=== PATIENT | male | born 1950 | race Caucasian/White ===

== ENCOUNTER 2017-03-15 13:27 | Emergency (ER) | payer OTHER ==
[~2017-03-15] VITALS: Ht 175.3 cm; Wt 72.6 kg
[2017-03-15] MEDS ORDERED: CHOLESTEROL PILL (13:43)
[2017-03-15] MEDS ORDERED: BP MED (13:43)
[2017-03-15] MEDS ORDERED: ASPIR 8181 MG PO (13:44)
== END 2017-03-15 13:50 | disposition home or self-care (01) ==
LOC: ED 13:27
DX: Z00.8 Encounter for other general examination (principal)

== ENCOUNTER 2017-07-29 17:49 | Inpatient (IN) | payer OTHER ==
[~2017-07-29] VITALS: Ht 175.3 cm; Wt 77.0 kg
[~2017-07-29 17:49] MED LIST: ASPIR 8181 MG PO; BP MED; CHOLESTEROL PILL
--- NOTE | 2017-07-30 00:45 | NUR ---
HANDOFF REPORT RECEIVED FROM ED RN MARIELLE VIA TELEPHONE. PT TO ARRIVE TO MED SURG WITH FLOAT NURSE ANGLE.
--- NOTE | 2017-07-30 01:00 | NUR ---
PT ARRIVES TO MED SURG FLOOR WITH FLOAT NURSE ANGLE VIA STRETCHER. PT ABLE TO AMBULATE FROM STRETCHER INDEPENDENTLY TO HOSPITAL BED. PT STATES PAIN IS 2/10 AT THIS TIME, REFUSES PRN PAIN MEDICATION. PT DENIES NAUSEA. ABDOMEN SOFT, BOWEL TONES ACTIVE X 4, PT GUARDED WITH PALPATION, DENIES TENDERNESS. PTS LUNGS CLEAR THROUGHOUT, HR IRREGULAR, ON TELE 5. IVF INFUSING WNL, LINE FLUSHES WELL, GOOD BLOOD RETURN. CALL LIGHT GIVEN TO PT, MOUTH SWABS AT BEDSIDE. PT HAD TEMPERATURE OF 99.0, DEMONSTRATED USE OF INCENTIVE SPIROMETER EFFECTIVELY X 3. WILL CONTINUE TO MONITOR.
--- NOTE | 2017-07-30 02:36 | NUR ---
IN PT ROOM, IV PUMP BEEPING FOR DISTAL OCCLUSION. PT SLEEPING ON LEFT SIDE, APPEARS COMFORTABLE, BREATHING NON-LABORED, PT QUIETLY SNORING. CALL LIGHT IN REACH.
--- NOTE | 2017-07-30 02:59 | NUR ---
IN PT ROOM TO FIX LEAD ON TELE, PT AWAKENS TO VOICE, STATES PAIN IS 4/10 AT THIS TIME "COMING BACK". ADMINISTERED 2MG MORPHINE IV PRN. INSTRUCTED PT TO USE CALL LIGHT FOR ANY NEEDS, CALL LIGHT IN REACH. CURTAIN CLOSED PER PT REQUEST. IVF INFUSING.
--- NOTE | 2017-07-30 04:13 | NUR ---
CHECKED ON PT, PT SLEEPING AT THIS TIME, IVF INFUSING, PT SNORING QUIETLY, LIGHTS OFF IN ROOM, PT APPEARS COMFORTABLE, BREATHING NON-LABORED.
--- NOTE | 2017-07-30 05:09 | NUR ---
PHONE CALL RECEIVED FROM PT'S , UPDATED ON PT STATUS, DR. LUIS TO EVALUATE PT TODAY.
--- NOTE | 2017-07-30 05:12 | NUR ---
PT RECEIVED IV MORPHINE 2MG X 1 FOR 4/10 REPORTED PAIN IN MID ABD. PT HAS DENIED NAUSEA THROUGHOUT SHIFT, ABD SOFT, NON-TENDER WITH PALPATION. PT CONTINUES TO RECEIVE IVF. HR IRREGULAR THROUGHOUT SHIFT, ON TELE 5, RATE CONTROLLED. PT SLEPT MOST OF SHIFT AFTER ARRIVING TO MED SURG, PLEASANT, ALERT AND ORIENTED X 3.
--- NOTE | 2017-07-30 05:32 | NUR ---
PT ASSESSMENT COMPLETE. PT ABDOMEN SOFT, NON-TENDER WITH PALPATION, PT STATES PAIN IS 1.5-2/10 AT THIS TIME. PT DENIES NAUSEA, BOWEL TONES ACTIVE X 4. PT USING INCENTIVE SPIROMETER AT THIS TIME INDEPENDENTLY. IVF INFUSING WNL. CALL LIGHT IS IN REACH. GAVE PT MOUTH SWAB REQUESTED, AND EMPTIED URINAL, 150 ML.
--- NOTE | 2017-07-30 05:53 | EKG ---
[facility] [address] [facility] [place] [address] Signed Atrial fibrillation Abnormal QRS-T angle, consider primary T wave abnormality Abnormal ECG No previous ECGs available Confirmed by RACHANA BALLESTEROS MD ([id number]) on 07/30/2017 5:52:45 AM Electronically Signed By: RACHANA BALLESTEROS MD 07/30/17 0553 PATIENT NAME: RODRICK JAVIER Electrocardiogram DATE OF : 48 PHYSICIAN: RACHANA BALLESTEROS MD REPORT #: [id number] REPORT IS CONFIDENTIAL AND NOT TO BE RELEASED WITHOUT AUTHORIZATION
--- NOTE | 2017-07-30 08:22 | NUR ---
PT RESTING IN BED WITH EYES CLOSED UPON ENTERING ROOM. AWOKE EASILY TO VOICE. PT DENIES PAIN, NAUSEA, OR OTHER CONCERNS AT THIS TIME. STATES "I'M FEELING PRETTY GOOD, I WAS FINALLY ABLE TO GET SOME REST." PT ORIENTED TO ALL. ASSESSMENT COMPLETED. PT ON TELE #5, HR IRREGULAR WITH RATE FROM 85-95, PT ASYMPTOMATIC. IV INFUSING WNL. PT VOIDING WITHOUT DIFFICULTY USING URINAL, URINE CONCENTRATED. CALL LIGHT WITHIN REACH.
--- NOTE | 2017-07-30 09:48 | NUR ---
PT IS RESTING IN BED SAFELY WITH CALLLIGHT IN REACH. 100 VITALS TAKEN AND AM CARE DONE. PT WAS GIVEN FRESH SWABS. PT DID NOT NEED ANYTHING ELSE AT THE MOMENT
--- NOTE | 2017-07-30 10:20 | NUR ---
PT RESTING IN BED AWAKE. DENIES PAIN OR NAUSEA. GIVEN SWABS FOR DRY MOUTH. SCD'S ON AND IN PLACE. PT USING URINAL, VOIDING WITHOUT DIFFICULTY. CALL LIGHT WITHIN REACH.
--- NOTE | 2017-07-30 12:15 | NUR ---
PT RESTING IN BED AWAKE. IV FLUID BOLUS COMPLETE, MAINTENENCE FLUIDS STARTED. PT DENIES PAIN, NAUSEA OR OTHER CONCERNS AT THIS TIME. PT SBA TO AMB TO RECLINER. CALL LIGHT WITHIN REACH.
--- NOTE | 2017-07-30 14:20 | NUR ---
PT SBA TO BED. IV INFUSING WNL. CALL LIGHT WNL. SCD'S ON.
--- NOTE | 2017-07-30 14:35 | NUR ---
PT IS RESTING IN BED SAFELY WITH CALL LIGHT IN REACH. PT'S TEMP WAS ELEVATED PT SAID HE HAS BEEN USING HIS IS. WILL NOTIFY NURSE
--- NOTE | 2017-07-30 16:09 | NUR ---
PT HAD FULL BODY SURGICAL WIPE DOWN AND A CLEAN GOWN PUT ON. PT IS NOW SITTING UP IN CHAIR WITH CALL LIGHT IN REACH. PT ASKED FRO WARM BLANKETS.
--- NOTE | 2017-07-30 16:41 | NUR ---
PT AMB INDEPENDENTLY TO STRETCHER. LR ON STRAIGHT TUBING RUNNING, HEPARIN ADMINISTERED, SCD'S ON, CHLORHEXADINE WIPES COMPELTED, DENTURES OUT. PT TRANSPORTED TO OR. NOTIFIED OF PLANS FOR SURGERY BY DR. LUIS.
--- NOTE | 2017-07-30 19:55 | NUR ---
07/30/171954 Gladys Tellez 1937 PT RESP EVEN AND UNLABORED. ENDOSCOPY NURSE TRIED TO PLACE ORAL AIRWAY, PT REACTIVE AND AIRWAY WAS NOT PLACED. PT ASLEEP. 1939 NEB TREATMENT PLACED PER ENDOSCOPY NURSE. 1949 ENDOSCOPY NURSE AT BEDSIDE PT REORIENTED TO PACU. PT BACK TO SLEEP.
--- NOTE | 2017-07-30 20:06 | HP ---
[facility] [address] [place], [place] [address] Signed ADMISSION DATE: 07/30/2017 REASON FOR ADMISSION: Acute calculous cholecystitis with choledocholithiasis and low-grade jaundice. 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 He lives in the [place] and his is at work in a local care center. At approximately 10 a.m. yesterday, he developed rather severe epigastric pain. The pain was bad enough. He called his to take him to the hospital while she was at work. He had no associated nausea and no prior episodes of pain of this sort. He thought he had "food poisoning." He is normally a patient at the [facility] and had previously been given medication for "heartburn." He was noted by the evaluating physician, Dr. Joshua Woodruff to have atrial fibrillation. He has no prior known history of atrial fibrillation. His evaluation in the emergency room was over taken by Dr. Ennis upon the shift change and an abdominal ultrasound was performed, which showed a distended gallbladder and distended common duct up to 1.2 cm without signs of acute cholecystitis. There is no pancreatic ductal dilatation. A CT scan was recommended. I was called at that point as the patient was noted to have a creatinine of 1.7 though a low normal GFR. The CT scan was recommended by me and was performed, which confirmed a dilated gallbladder and common duct and findings within the common bile duct suggestive of choledocholithiasis. He had some colonic diverticulosis and nonspecific fat stranding near the ascending, descending colon (likely related to cholecystitis in my opinion). He is admitted for further evaluation and care. It is notable that his pain largely subsided at some point in the course of his evaluation through the emergency room. Right now, he is feeling reasonably well. It is noted that his noted him to have slight jaundice. His bilirubin at initial evaluation was 2.6. I am advised by his nurse that he does drink alcohol on a daily basis. He has no prior history of abdominal surgery of any sort, though he has had a cardiac bypass as manifest by median sternotomy. He does smoke on a daily basis. He is considered to have penicillin allergy (at least his entire family has that he says). As regard to medications, he is taking aspirin 81 mg daily, anticholesterol pill, and antihypertensive of which we are uncertain at this time. As regard to atrial fibrillation, he has never been documented with that in the past, so he clearly has it now. Review of his EKG Electronically Signed By: BRENNAN LUIS MD 07/30/172005 PATIENT NAME: RODRICK JAVIER HISTORY AND PHYSICAL DATE OF : 48 PHYSICIAN: BRENNAN LUIS MD REPORT #: [id number] REPORT IS CONFIDENTIAL AND NOT TO BE RELEASED WITHOUT AUTHORIZATION [facility] [address] [place], [place] [address] Gill was that of abnormal QRS, T angle, considering T-wave abnormality, and atrial fibrillation. REVIEW OF SYSTEMS: He denies any chest pain or shortness of breath. He has had no dysphagia, hematemesis, or blood per rectum. Denies any dysuria. His pain was in the central upper mid abdomen (epigastric area), not particularly in the back. PHYSICAL EXAMINATION: GENERAL: A very pleasant white man, who does not appear obese. HEENT: He does have slight icterus as manifested in his medial upper arms and slightly his sclera. His Trachea is midline. Mucous membranes are slightly dry. CHEST: Relatively clear. HEART: Irregularly irregular. ABDOMEN: Nondistended. There is no ascites. Palpation reveals mild tenderness in the epigastric and right subcostal area. There is no mass. EXTREMITIES: No clubbing, cyanosis, or edema. LABORATORY STUDIES: Initial lab studies performed at 6:10 p.m. July 29 showed a white count of 12.4, hematocrit 38.3, platelets 245,000, band forms are 16%. Chem profile showed normal electrolytes, carbon dioxide 21, creatinine 1.70, glucose 166, calcium 9.9. Bilirubin 2.6, AST 284, ALT 110, alkaline phosphatase 52, lipase was 30. I have reviewed the CT scan and the ultrasound itself. The gallbladder itself has a visible wall and 1 large septation at the neck. I do not see intraluminal stones on the images noted. There seems to be some debris that is not shadowing on transverse images, however. CT scan was reviewed in detail showing no sign of intrahepatic ductal dilatation, but markedly dilated stomach. There was a fair amount of fluid within the stomach. Close inspection of the gallbladder on CT scan shows no calcified stones, moderately sized gallbladder. On coronal view, the pancreas appears normal to my examination. The common bile duct is dilated and there do appear to be some radiodense filling defects within it, presumably gallstones. There is no double duct sign to suggest ampullary neoplasm. ASSESSMENT: The patient has had an episode of significant biliary pain with low-grade cholecystitis and choledocholithiasis with elevated bilirubin. He has been admitted for further evaluation and care. I discussed the pathophysiology of this problem with him in detail. Electronically Signed By: BRENNAN LUIS MD 07/30/172005 PATIENT NAME: RODRICK JAVIER HISTORY AND PHYSICAL DATE OF : 48 PHYSICIAN: BRENNAN LUIS MD REPORT #: [id number] REPORT IS CONFIDENTIAL AND NOT TO BE RELEASED WITHOUT AUTHORIZATION [facility] [address] [place], [place] [address] Signed Treatment of this would appropriately include cholecystectomy with common duct exploration and removal of any obstructing stones. A laparoscopic approach would be possible and likely though an open procedure may be required. Further considerations in his particular case are presumably new onset atrial fibrillation. We will consult Dr. Gill in this regard. He does not appear to be with rapid ventricular response. The acute problem may be contributory to this issue. He does have ongoing smoking and prior history of a valvular replacement according to notes I have read as well as coronary artery bypass grafting. Additionally, his persistent daily alcohol use does put him at increased risk of alcohol withdrawal syndrome and alcohol-related cardio toxicities. We will explore that further, but withdrawal prophylaxis would be appropriate in any case. For now, we will repeat his liver enzymes and CBC. Give additional fluid intravenously. Continue with IV antibiotics and parenteral pain medication, anticipating operative intervention in appropriate time and interval. MD BERKLEY Galicia/DEENA /[id number] cc: Shmuel [place], [facility] Gabrile Ennis MD Electronically Signed By: BRENNAN LUIS MD 07/30/172005 PATIENT NAME: RODRICK JAVIER HISTORY AND PHYSICAL DATE OF : 48 PHYSICIAN: BRENNAN LUIS MD REPORT #: [id number] REPORT IS CONFIDENTIAL AND NOT TO BE RELEASED WITHOUT AUTHORIZATION [address] Gill Electronically Signed By: BRENNAN LUIS MD 07/30/172005 PATIENT NAME: RODRICK JAVIER HISTORY AND PHYSICAL DATE OF : [birth year] PHYSICIAN: BRENNAN LUIS MD REPORT #: [id number] REPORT IS CONFIDENTIAL AND NOT TO BE RELEASED WITHOUT AUTHORIZATION
--- NOTE | 2017-07-30 20:30 | NUR ---
PT TRANSFERRED FROM RECOVERY TO ROOM 121 FOR CLOSE OBSERVATION, 4 PERSON ASSIST TO SLIDE ONTO BED, PT OPENS EYES AND ANSWERS QUESTIONS APPROP, QUICKLY FALLS BACK TO SLEEP, 02 @ 2L/NC, 96%, CONT. PULSE OXIMETER PLACED. TELE #1 PLACED HRIR 97. ABD BINDER IN PLACE. MEPELEX DRSG CDI. KINGSLEY SECURED WITH SCANT AMOUNT OF RED SERROUS FLUID. T-TUBE PATENT TO L MID ABD AND SECURED. SCANT AMOUNT PLASCENCIA DRAINAGE. ORDERS NOTED. BED ALARM FOR SAFETY.
--- NOTE | 2017-07-30 20:50 | NUR ---
PT CALLING OUT TO USE URINAL, VOIDED 50ML DARK ORANGE URINE, ASSISTED WITH POSITIONING FOR COMFORT. CALL LIGHT IN EASY REACH.
--- NOTE | 2017-07-30 22:00 | NUR ---
PT AWAKE, VOIDED 200ML DARK ORANGE URINE IN URINAL, ENC TO DEEP BREATH, REPOSITIONED, ABLE TO TURN WITH MIN ASSIST. CALL LIGHT IN EASY REACH.
--- NOTE | 2017-07-31 | NUR ---
TURNED AND REPOSITIONED, ENC DEEP BREATHING WHILE SPLINTING ABD, OXIMETER 95% WITH 02 2L/NC, ABD BINDER IN PLACE. KINGSLEY AND T-TUBE SECURE AND PATENT. PT C/O ABD PAIN. MORPHINE GIVEN BY SHIKHA-BRIGHT FOR PAIN. WARM BLANKET FOR COMFORT. SCD'S ON.
--- NOTE | 2017-07-31 00:05 | NUR ---
PT ASSESSMENT COMPLETED. PT ASSISTED TO USE URINAL IN BED. PT C/O DISCOMFORT WHEN ATTEMPTING TO VOID. PT HAVING DRY, NON PRODUCTIVE COUGH. PT PROVIDED WITH FOLDED DRAW SHEET AND PROVIDED WITH EDUCATION ON SPLINTING WHILE COUGHING. PT DEMONSTRATES APPROPRIATELY. PT DENIES NEEDS AT THIS TIME. CALL LIGHT WITHIN REACH.
--- NOTE | 2017-07-31 01:00 | NUR ---
PT REPORTS PAIN 10/10 TO ABD. PT ASSISTED TO REPOSITION. PRN MS ADMINISTERED. PT RESTING WITH EYES CLOSED WHEN CONTINUOUS LINTER DRIER OPERATOR EXITS THE ROOM. SAO2 95%, HR 90'S.
--- NOTE | 2017-07-31 03:27 | NUR ---
PT RESTING IN BED WITH EYES CLOSED. RESPIRATIONS EVEN AND UNLABORED. PT APPEARS TO BE SLEEPING. HR 90'S. CALL LIGHT WITHIN PT'S REACH.
--- NOTE | 2017-07-31 04:44 | NUR ---
PT ASSESSMENT COMPLETED. GAUZE DRESSING TO CENTER OF ABD WITH MODERATE AMOUNT OF RED DRAINAGE. MEPILEX WITH SEVERAL SCANT SPOTS OF RED SHADOWING. BT'S HYPO ACTIVE, ABD TENDER TO PALPATION. PT REPORTS PAIN 6/10, REQUETS PAIN MEDICATION. LUNGS NOTED TO HAVE WHEEZE THROUGHOUT. PT GIVES SMALL COUGH ON COMMAND, SPLINTS APPROPRIATELY. PT DEMONSTRATES APPROPRIATE IS USE. PRN MS ADMINISTERED. PT DENIES OTHER NEEDS AT THIS TIME. CALL LIGHT WITHIN REACH.
--- NOTE | 2017-07-31 05:06 | NUR ---
PT RESTING OFF AND ON THROUGHOUT THE NIGHT. PAIN OFF AND ON, MS 4MG X 2. WHEEZING THROUGHOUT, ENCOURAGE SPLINTING/DEEP BREATHING/COUGHING/IS. GAUZE TO MIDLINE WITH MODERATE AMNT OF RED DRAINAGE. MEPILEX AND OPSITE TO UPPER ABD WITH SCANT AMOUNT OF SHADOWING X SEVERAL SPOTS. KINGSLEY WITH SS DRAINAGE, T-TUBE WITH BROWN DRAINAGE. TELE #1, HR IRREGULAR, 90'S-100'S. 1-2 PA. D5LR @ 125.
--- NOTE | 2017-07-31 06:58 | NUR ---
PT RESPOSITIONED IN BED. REPORTS PAIN 8/10, PRN MS ADMINISTERED.
--- NOTE | 2017-07-31 10:15 | NUR ---
PT SITTING UP IN BED AWAKE WATCHING TV. DENIES PAIN OR NAUSEA AT THIS TIME. WEANED TO RA SATTING 93%. HR INCREASED SLIGHTLY AFTER NEB TREATMENT 95-105, PT ASYMPTOMATIC. NO NEW BLEEDING, TUBES IN PLACE, IV INFUSING WNL. CALL LIGHT WITHIN REACH.
--- NOTE | 2017-07-31 11:35 | NUR ---
PT AMB WITH SBA TO RESTROOM TO VOID. NOTED AUDIBLE WHEEZING AND SOME DYSPNEA ON EXERTION, SATS REMAIN ABOVE 90% ON RA. PT AMB TO CHAIR. MEDICATED WITH IV MORPHINE PER REQUEST FOR REPORTS OF 8/10 SURGICAL PAIN. PERSONAL ITEMS AND CALL LIGHT WITHIN REACH.
--- NOTE | 2017-07-31 13:02 | NUR ---
PT SBA TO BED FROM RECLINER. HR INCREASED TO 125 WITH ACTIVITY, DR. LUIS AND DR. BALLESTEROS AWARE. PT ASYMPTOMATIC. PT SATTING 90-92% ON RA. PT RATING PAIN 5/10 AT THIS TIME, DENIES NAUSEA. ALL TUBES AND ABD BINDER IN PLACE, NO NEW BLEEDING NOTED FROM UMBILICAL SITE. IV INFUSING WNL. CALL LIGHT WITHIN REACH.
[2017-07-31] MEDS ORDERED: CHLORTHALIDONE50 MG PO (13:46)
[2017-07-31] MEDS ORDERED: FENOFIBRATE145 MG PO (13:47)
--- NOTE | 2017-07-31 13:48 | NUR ---
PT DRINKING WATER, SIPS OF CLEARS, EDUARDO WELL. MEDICATED WITH 1 TAB PERCOCET. ABD BINDER REMOVED PER DR. LUIS. NICOTINE PATCH APPLIED. CALL LIGHT WITHIN REACH.
[2017-07-31] MEDS ORDERED: TOPROL XL200 MG PO (13:49)
[2017-07-31] MEDS ORDERED: ZESTRIL40 MG PO (13:49)
[2017-07-31] MEDS ORDERED: OMEPRAZOLE20 MG PO (13:55)
[2017-07-31] MEDS ORDERED: CRESTOR40 MG PO (13:58)
[2017-07-31] MEDS ORDERED: VIAGRA100 MG PO (13:59)
[2017-07-31] MEDS ORDERED: COLACE100 MG PO (14:00)
[2017-07-31] MEDS ORDERED: PERCOCET 5-3251 EACH PO (14:02)
--- NOTE | 2017-07-31 14:03 | NUR ---
MED REC COMPLETE WITH [facility] REFILL L[facility].
--- NOTE | 2017-07-31 14:06 | NUR ---
PT SITTING UP IN BED AWAKE. DENIES PAIN OR NAUSEA AT THIS TIME. SATTING 96% ON 1L NC. PT ON TELE #1 HR IRREGULAR BETWEEN 85-95, ASYMPTOMATIC. UMBILICAL INCISION SITER COVERED WITH GAUZE, SMALL AMOUNT OF RED DRAINAGE NOTED, CLEAN GAUZE APPLIED. MEPILEX AND OPSITE IN PLACE ON UPPER MIDLINE INCISION WITH SMALL AMOUNT OF OLD SEROSANGUINOUS DRAINAGE. T-TUBE AND KINGSLEY DRAIN BOTH IN PLACE AND FUNCTIONING WNL. T-TUBE WITH SMALL AMOUNT OF BROWN OUTPUT, KINGSLEY WITH SMALL AMOUNT OF SEROSANGUINOUS OUTPUT. ABD BINDER IN PLACE. PT USING I.S. ORDERED. CALL LIGHT WITHIN REACH.
--- NOTE | 2017-07-31 15:05 | NUR ---
PT RESTING IN BED, EYES CLOSED, RESP EVEN AND UNLABORED. SATTING 94% ON RA WHILE ASLEEP. HR 95-100.
--- NOTE | 2017-07-31 16:53 | NUR ---
PT AMB HALLWAY, BECAME VERY SHORT OF BREATH AND HR INCREASED TO 140-150, HAD TO STOP TO CATCH HIS BREATH A COUPLE TIMES. HR RECOVERED WELL ONCE BACK TO BED BUT REMAINED SLIGHTLY ELEVATED AT 100-120. MEDICATED WITH PRN IV METOPROLOL. LINENS CHANGED BEFORE PT GETTING BACK TO BED. PT ALSO MEDICATED FOR 8/10 ABD PAIN WITH 2 TABS PERCOCET. PT PLACED ON 1L NC SATTING 92%, HR HAS DECREASED BACK TO BASELINE OF 85-95. PT REFUSED OFFERS FOR ANYMORE PO INTAKE OTHER THAN WATER. CALL LIGHT WITHIN REACH.
--- NOTE | 2017-07-31 19:40 | NUR ---
RECEIVED REPORT FROM TABLE ASSEMBLER CHARGE NURSE. PATIENT IS RESTING COMFORTABLY IN BED, BREATHING IS EVEN AND UNLABORED. CALL LIGHT WITHIN REACH.
--- NOTE | 2017-07-31 20:09 | NUR ---
NOTIFIED BY LADLE CLEANER THAT PATIENT'S BLOOD PRESSURE IS 162/92. WILL CONTINUE TO MONITOR.
--- NOTE | 2017-07-31 20:30 | NUR ---
CHUCKS CHANGED DUE TO DRAINAGE FROM KINGSLEY DRAIN. REINFORCED WITH ABD PAD AND MONSERRAT WRAP. DUE TO REPOSITIONING, PATIENT STATES PAIN IS 9/10 IN ABD. PRN PERCOCET GIVEN PER EMAR. O2 SATURATION IS 94% ON 2L O2, PULSE IS 100. PATIENT HAS NO OTHER NEEDS AT THIS TIME. WILL CONTINUE TO MONITOR FOR PAIN CONTROL AND EXCESS DRAINAGE. PRN BREATHING TREATMENT ADMINISTERED. CALL LIGHT WITHIN REACH.
--- NOTE | 2017-07-31 21:42 | NUR ---
DR. BURNS CALLED REGARDING PATIENT'S HEART RATE. HE STATES THAT IF HEART RATE REMAINS ABOVE 100 AFTER PATIENT HAS HAD ADEQUATE PAIN CONTROL, NOTIFY HIM. NO OTHER ORDERS AT THIS TIME.
--- NOTE | 2017-07-31 22:45 | NUR ---
DR. BURNS NOTIFIED THAT PATIENT'S HEART RATE IS REMAINING IN LOW 100s DESPITE ADEQUATE PAIN CONTROL. ALSO NOTIFIED DR. BURNS ABOUT BP OF 162/106. PO CARDIZEM ORDERED. NO NEW ORDERS AT THIS TIME.
--- NOTE | 2017-07-31 23:26 | NUR ---
PO CARDIZEM GIVEN PER EMAR. PATIENT IS RESTING COMFORTABLY IN BED. DENIES NEEDS AT THIS TIME. CALL LIGHT WITHIN REACH.
--- NOTE | 2017-07-31 23:49 | NUR ---
PATIENT REPORTS 10/10 PAIN IN ABD AFTER REPOSITIONING PATIENT. PRN MORPHINE GIVEN PER EMAR. PATIENT REPOSITIONED DUE TO DRAINAGE FROM KINGSLEY DRAIN SATURATING GOWN AND SOPHIA. ABD APPLIED. DRAINAGE IS SEROSANGUENOUS. PATIENT DENIES FURTHER NEEDS AT THIS TIME. CALL LIGHT WITHIN REACH.
--- NOTE | 2017-08-01 01:11 | NUR ---
PATIENT IS RESTING COMFORTABLY IN BED, BREATHING IS EVEN AND UNLABORED ON 2L 02 VIA NC. O2 SATURATION IS 94%. PULSE IS 96, FLACC SCORE OF 0. CALL LIGHT WITHIN REACH.
--- NOTE | 2017-08-01 01:39 | NUR ---
NURSE IS AWARE RE BP.
--- NOTE | 2017-08-01 01:43 | NUR ---
PATIENT RESTING COMFORTABLY IN BED, BREATHING IS EVEN AND UNLABORED. O2 SATURATION IS 92% ON 2L O2, PULSE IS 100. REPORTS 4/10 PAIN IN ABD, PRN PERCOCET GIVEN PER EMAR. NO FURTHER NEEDS AT THIS TIME. CALL LIGHT WITHIN REACH, ASSESSMENT DONE.
--- NOTE | 2017-08-01 04:13 | NUR ---
PATIENT RESTING COMFORTABLY IN BED, BREATHING IS EVEN AND UNLABORED. O2 SATURATIONSI 93% ON 2L O2 VIA NC, PULSE IS 94. FLACC SCORE OF 0. CALL LIGHT WITHIN REACH.
--- NOTE | 2017-08-01 04:46 | NUR ---
BRIGHT SHEPARD STATES PATIENT HAS AUDIBLE WHEEZE, RESPIRATORY CALLED TO GIVE PRN BREATHING TREATMENT.
--- NOTE | 2017-08-01 04:57 | NUR ---
PATIENT IS RESTING IN BED, REPORTS 5/10 PAIN IN ABD. PRN PERCOCET GIVEN PER EMAR. DENIES FURTHER NEEDS AT THIS TIME. CALL LIGHT WITHIN REACH.
--- NOTE | 2017-08-01 05:34 | NUR ---
PATIENT SLEPT OFF AND ON THROUGHOUT THE NIGHT. HEART RATE REMAINS SINUS TACH THROUGHOUT THE NIGHT BETWEEN 1O3 AND 115. PATIENT WAS STARTED ON PO CARDIZEM LAST NIGHT. PATIENT ON TELE, REMAINS IN A-FIB. REQUIRES 2L O2 VIA NC TO MAINTAIN O2 SATURATION GREATER THAT 90%. KINGSLEY DRAIN SITE HAD SMALL AMOUNT OF DRAINAGE REQUIRING REINFORCEMENT WITH ABD. THERE HAS BEEN NO NEW DRAINAGE SINCE 07/31. URINE OUTPUT IS QS. PATIENT'S PAIN INCREASES DURING REPOSITIONING WITH A PAIN LEVEL OF 10/10 REPORTED EARLIER THIS SHIFT. PAIN HAS BEEN WELL CONTROLLED WITH PRN PO PERCOCET, X1 DOSE OF PRN IV MORPHINE REQUIRED.
--- NOTE | 2017-08-01 08:52 | NUR ---
PT IN BED AWAKE. AM CARE. SET UP FOR BK. FRESH WATER AND COFFEE. EMPTYED GARBAGE PICKED UP ROOM.
--- NOTE | 2017-08-01 08:56 | OR ---
[facility] [address], [place] [address] Signed DATE OF OPERATION: 07/30/2017 SURGEON: Brennan Luis MD PREOPERATIVE DIAGNOSES: 1. Obstructive jaundice and acute cholecystitis. 2. Chronic alcoholism, significant vasculopathy, history of CABG with valvuloplasty. POSTOPERATIVE DIAGNOSES: Acute cholecystitis with multiple large common duct stones and obstructive jaundice. PROCEDURE: 1. Laparoscopic cholecystectomy with conversion to open cholecystectomy with open common bile duct exploration and extraction of seven large common duct stones. 2. Biopsy of distal common bile duct with flexible choledochoscopy. 3. Intraoperative cholangiogram with surgeon directed fluoroscopy and placement of T-tube. SURGEON: Brennan Luis MD. ANESTHESIA: General endotracheal, Sonia Roa CRNA. INDICATION: This 67-year-old white male was admitted late last night with an episode of rather severe epigastric pain, which under evaluation in the emergency room improved quite markedly. He was noted to have elevated bilirubin to 2.6 and elevated liver enzymes. The patient does have underlying chronic alcoholism and long-standing history of peripheral vascular disease, having undergone coronary artery bypass grafting as well as valvuloplasty (we think). An ultrasound was performed showing thickening of the gallbladder wall and enlargement of the common bile duct. A CT scan was obtained, which showed no evidence of pancreatic neoplasm or double duct sign but did show several large gallstones within the common bile duct. Under period of observation, antibiotic therapy, parenteral pain medication so forth, repeat chem profile shows his bilirubin to have advanced from 2.6 to 4.9 with increasing elevation of his liver enzymes and low-grade fever. He is considered to have cholangitis low grade related to common duct stones and acute cholecystitis. He is admitted at this time to undergo cholecystectomy preferred by laparoscopic approach with a plan for a laparoscopic transcystic duct, common duct exploration and clearance of Electronically Signed By: BRENNAN LUIS MD 08/01/17 0856 PATIENT NAME: RODRICK JAVIER OPERATIVE REPORT DATE OF : 48 PHYSICIAN: BRENNAN LUIS MD REPORT #: [id number] REPORT IS CONFIDENTIAL AND NOT TO BE RELEASED WITHOUT AUTHORIZATION [facility] [address], [place] [address] Signed the duct. He understands he may require other methods to remove the common duct stones including open common duct exploration. Risks of bleeding, infection, bile duct injury, failure to cure the problem, and other unforeseen complications including missed diagnosis or additional diagnoses that would need remedy and wishes to proceed. I have discussed this on the phone with his who is currently at her work. Preoperative consultation undertaken with Dr. Gill, hospitalist as he does have what appears to be new onset atrial fibrillation and his underlying chronic alcoholism and likely COPD problems. FINDINGS: Indeed the gallbladder was acutely inflamed. Initial dissection showed the cystic duct to be relatively wide and initial cholangiogram laparoscopically showed multiple large gallstones within the common duct. There was some egress of contrast into the duodenum; however, the large stones were such that they would be quite unlikely to pass via the cystic duct even with a transcystic duct dilation. On that basis, conversion to open, completion cholecystectomy and open common duct exploration was undertaken. All stones were ultimately extracted from the common duct and completion T-tube cholangiogram showed good flow into the duodenum with no sign of obstruction. Of special note, he did have a papillary changes in the distal common duct and on that basis, biopsies of those were undertaken. Liver itself was not cirrhotic. He had no evidence of portal hypertension otherwise. DESCRIPTION OF PROCEDURE: The patient was brought to the operating room, given a general endotracheal anesthetic. Preoperative antibiotic, Ancef had been given. Sequential compression device stockings used and heparin subcutaneously administered. I personally placed his Rosario catheter without difficulty. His urine was noted to be orange, consistent with hyperbilirubinemia. The abdomen was clipped and prepared with chlorhexidine solution and draped sterilely. An infraumbilical incision was made and using an open Denisse cannula technique, pneumoperitoneum was achieved to a level of 14 mmHg of carbon dioxide gas. Intraabdominal inspection was undertaken. The gallbladder was initially obscured by omentum, draping over the right lobe of the liver. Three additional trocars were placed in usual configuration in the subxiphoid, right midclavicular, and right anterior axillary line. The omentum was freed from its draping over the liver and the gallbladder encountered and found to be subacutely inflamed, was grasped and elevated cephalad and retracted laterally. A fair amount of fatty tissue overlying the infundibulum was noted and this was dissected free with blunt electrocautery dissection, ultimately identifying well the cystic duct. One could see a somewhat dilated common hepatic duct. Clips were applied to a pericholecystic lymph node that was enlarged. Once the cystic duct was well defined, it did look somewhat dilated, certainly not tiny in any way. A clip was applied across gallbladder cystic duct junction and transverse choledochotomy made in the cystic duct. Egress of clear bile was noted from the cystic duct. Using an Johnson-type Electronically Signed By: BRENNAN LUIS MD 08/01/17 0856 PATIENT NAME: RODRICK JAVIER OPERATIVE REPORT DATE OF : 48 PHYSICIAN: BRENNAN LUIS MD REPORT #: [id number] REPORT IS CONFIDENTIAL AND NOT TO BE RELEASED WITHOUT AUTHORIZATION [facility] [address], [place] [address] Signed cholangiocatheter, intraoperative cholangiography was undertaken with surgeon directed fluoroscopy. Contrast was noted to pass into the common bile duct, which was markedly dilated. There were several large stones, one of which was particularly large and almost certainly not likely to pass via the cystic duct even with dilation and even unlikely to pass in my opinion past the ampulla from an ERCP. On that basis, conversion to open operation with extraction of common duct stones by open technique was deemed most advisable. The cystic duct was triply clipped and divided. The trocars were then removed under direct visualization showing no sign of bleeding and the infraumbilical fascial incision was reapproximated with interrupted 0 Vicryl suture. A right subcostal incision was made connecting portions of the trocar incisions. Dissection carried through the subcutaneous tissue sharply and with electrocautery and the anterior rectus sheath was divided. The underlying rectus muscle was partially divided. Posterior rectus sheath and attended peritoneum were incised and the abdomen was entered. A Bookwalter retractor with a small ring was used. Intraabdominal examination showed the liver to be without signs of cirrhotic changes or portal hypertension. Using the Bookwalter retractors, optimal exposure was provided of the right upper abdomen. A ring clamp was applied to the gallbladder and using electrocautery, it was dissected free from the liver without problem. Cystic arterial branches were clipped in the superior medial aspect and portions of a small lymph node were excised and vascular pedicles were clipped. The gallbladder was passed off the table and opened on the back table and found to have no sign of stone or neoplasm. Attention was then turned toward common duct exploration. The dilated common duct was quite obvious. The overlying peritoneum was incised with electrocautery, freeing the common duct in its distal most portion, particularly in the region of the cystic duct. Two stay sutures of 4-0 Maxon were used on an axial direction of the common duct. An 11 blade was used to perform a common duct choledochotomy. Egress of a fair amount of bilious fluid and probably contrast were noted. The choledochotomy was extended inferiorly with Lorenzana scissors and short distance proximally as well. Immediately noted within the common duct were large gallstones. They were multi-faceted and blunt and dark green and yellow. They initially were extracted with DeBakey forceps. Additional irrigation was undertaken, delivering even more stones. A Simon stone forceps was used to grasp some stones proximally and distally. Irrigation was undertaken more fully and no other stones were forthcoming. A flexible choledochal scope was then inserted into the common duct and examined proximally showing the biliary proximal ducts to be normal in appearance. Reorientation of the scope to the distal duct was undertaken showing no retained stones distally Electronically Signed By: BRENNAN LUIS MD 08/01/17 0856 PATIENT NAME: RODRICK JAVIER OPERATIVE REPORT DATE OF : 48 PHYSICIAN: BRENNAN LUIS MD REPORT #: [id number] REPORT IS CONFIDENTIAL AND NOT TO BE RELEASED WITHOUT AUTHORIZATION [facility] [address] [place] [id number] Signed either. There were papillary changes of the distal duct. Initially, consideration was made that this might be the duodenum itself, but with further examination and particularly given the size of the choledochal scope, that was considered quite unlikely. Photographs were taken. Using biopsy forceps through the flexible choledochoscope, those mucosal frond like changes were multiply biopsied. There was no untoward bleeding. #14 T-Tube was cut to the appropriate configuration and placed in the common bile duct and the choledochotomy secured with interrupted 4-0 PDS suture. Irrigation through the T-tube showed no sign of bile leakage. Plans were then made for completion cholangiogram. Using surgeon directed fluoroscopy once again, T-tube cholangiogram was undertaken showing good flow of contrast in the common bile duct and egress into the duodenum without problem, there was no sign of retained stone. Plans were then made for closure. Irrigation undertaken in subhepatic space, hemostasis was assured. Through one of the 5 mm trocar sites, a 7 mm flat Clay drain was placed in the subhepatic space. The T-tube itself was brought out inferior to the subcostal incision in a direct alignment, taking care to avoid too tense on the withdrawal of the tube from the abdomen so as to avoid dislodgement. The posterior sheath and attended peritoneum were reapproximated with running #1 PDS suture. Anterior rectus sheath and muscle were irrigated and the anterior rectus sheath was closed with running #1 PDS suture as well. Subcutaneous tissue was irrigated and skin was closed with running subcuticular 3-0 Vicryl. The umbilical skin was reapproximated with interrupted 3-0 Vicryl after irrigation and the remaining trocar site was closed with Steri-Strips. The drains were carefully secured to the abdominal wall with OpSite dressings and Mepilex silver sponge dressing was applied to this subcostal incision. The patient was ultimately extubated and transferred to recovery room in good condition, having suffered no known complications. Blood loss was about 25 mL at most. Sponge, needle, and instrument counts were reported as correct x3. Brennan Luis MD Electronically Signed By: BRENNAN LUIS MD 08/01/17 0856 PATIENT NAME: RODRICK JAVIER OPERATIVE REPORT DATE OF : 48 PHYSICIAN: BRENNAN LUIS MD REPORT #: [id number] REPORT IS CONFIDENTIAL AND NOT TO BE RELEASED WITHOUT AUTHORIZATION [address] [address] Signed /[facility] /[id number] cc: MD Dr. Rod Vyas [facility] Electronically Signed By: BRENNAN LUIS MD 08/01/17 0856 PATIENT NAME: RODRICK JAVIER OPERATIVE REPORT DATE OF : 48 PHYSICIAN: BRENNAN LUIS MD REPORT #: [id number] REPORT IS CONFIDENTIAL AND NOT TO BE RELEASED WITHOUT AUTHORIZATION
--- NOTE | 2017-08-01 09:47 | NUR ---
ASSISTED PATIENT WITH BED BATH AND LINEN CHANGE. PATIENT SITTING ON THE EDGE OF BED WITH CALL BUTTON IN REACH. NO OTHER NEEDS AT THIS TIME.
--- NOTE | 2017-08-01 11:10 | NUR ---
PT A/O. UP IN BED. EATING APPLESAUCE. NO PAIN INDICATED BY PT. AM MED PASS COMPLETE. PT TOLLERATED WELL. PERFERS THEM TAKEN WITH APPLE SAUCE.
--- NOTE | 2017-08-01 12:00 | NUR ---
PT WANTED TO BE SET AT EDGE OF BED TO EAT LUNCH
--- NOTE | 2017-08-01 12:43 | NUR ---
SET PT UP FOR LUNCH. FRESH WATER AND COFFEE
--- NOTE | 2017-08-01 13:03 | NUR ---
PT RESTING IN BED. HE IS ALERT AND ORIENTED. HE MENTIONED THAT HE IS FEELING BETTER, BUT COUGHING HURTS. EXPRESSED THANKS FOR THE CARE HE HAS RECEIVED HERE AT [facility]. WHILE I WAS WITH PT, HIS MOTHER AND CAME TO VISIT. WILL LET THEM SPEND TIME TOGETHER. I WILL FOLLOW NEEDED
--- NOTE | 2017-08-01 13:35 | NUR ---
PT AMBULATED 80FT WITH RN. 3L [address] DURING AMBULATION[address] 2L WHILE RESTING. PT APPEARS SOB. RESPIRATORY THERAPY CALLED TO GIVEN BREATHING TX TO PATIENT. STICKER LEAD REPLACED ON CHEST FOR TELEMETRY.
--- NOTE | 2017-08-01 17:02 | NUR ---
PT IS DOING WELL. TOOK TO THE BR. EMTYED GARBAGE.
--- NOTE | 2017-08-01 18:10 | NUR ---
LAP JAGDISH CONVERTED TO OPEN JAGDISH. LAP SITES SEEN AND MEPILEX UPPER ABD OVER INCISION SITE. T TUBE CLAMPED. KINGSLEY DRAIN IN PLACE. TELE [address] BRADYCARDIC (CHANGING METOPROLOL PRN). VANE PATCH LEFT SHOULDER. D5LR @ 75. RAC IV. CARDIAC DIET. 1PA AMBULATION. POSSIBLE D/C TOMORROW. NEB TX PRN. SOB AT TIMES.
--- NOTE | 2017-08-01 19:05 | NUR ---
RECEIVED REPORT FROM RN. PATIENT IS SITTING ON EDGE OF BED, BREATHING IS EVEN AND UNLABORED. O2 SATURATION IS 100% ON 3L O2 VIA NC. PULSE IS 79. PATIENT DENIES PAIN AT THIS TIME, NO NAUSEA. NO NEEDS AT THIS TIME. CALL LIGHT WITHIN REACH.
--- NOTE | 2017-08-01 21:40 | NUR ---
PATIENT RESTING COMFORTABLY IN BED, BREATHING IS EVEN AND UNLABORED. O2 SATURATION IS 95% ON 3L O2 VIA NC. TITRATED O2 DOWN TO 2L, PUT PATIENT DESATURATED TO 86%, PATIENT PUT BACK ON 3L O2. SATURATION IS CURRENTLY 93%. PATIENT REPORTS 4/10 PAIN IN ABD, PRN PERCOCET GIVEN PER EMAR. PATIENT DENIES FURTHER NEEDS AT THIS TIME. NO NEW DRAINAGE FROM INCISIONS, PATIENT DOES NOT COMPLAIN OF NAUSEA. PULSE IS CURRENTLY 74, PATIENT STILL REMAINS IN A-FIB. ASSESSMENT DONE, SCHEDULED MEDICATIONS GIVEN. CALL LIGHT WITHIN REACH.
--- NOTE | 2017-08-01 22:10 | NUR ---
PATIENT RESTING COMFORTABLY IN BED, BREATHING IS EVEN AND UNLABORED. O2 SATURATION IS 92% ON 3L O2 VIA NC, PULSE IS 77. FLACC SCORE OF 0. CALL LIGHT WITHIN REACH.
--- NOTE | 2017-08-01 23:49 | NUR ---
PATIENT SITTING ON EDGE OF BED, STATES "I AM LEAKING EVERYWHERE." SMALL AMOUNT OF SEROSANGENOUS DRAINAGE NOTED ON GOWN, INCISIONS ARE C/D/I. PATIENT STATES "I THINK I SAT ON MY DRAIN." GOWN CHANGED. O2 SATURATION IS 93% ON 3L O2, PULSE IS 100. PATIENT STATES "MY PAIN IS GOOD, BUT I WILL WANT SOMETHING FOR WHEN I GET BACK INTO BED." CALLED RT TO GIVE PATIENT BREATHING TREATMENT DUE TO INCREASED WORK OF BREATHING AND AUDIBLE EXPIRATORY WHEEZING. RESPIRATORY RATE IS 24. PATIENT DENIES FURTHER NEEDS AT THIS TIME. CALL LIGHT WITHIN REACH.
--- NOTE | 2017-08-02 00:21 | NUR ---
PATIENT REPORTING 6/10 PAIN IN ABD. 2 MG PRN IV MORPHINE GIVEN PER EMAR. O2 SATURATION IS 92% ON 3L O2 VIA NC, PULSE IS 86, BREATHING IS EVEN AND UNLABORED. DENIES FURTHER NEEDS AT THIS TIME. CALL LIGHT WITHIN REACH.
--- NOTE | 2017-08-02 00:28 | NUR ---
PATIENT'S BREATHING IS EVEN AND UNLABORED, NO AUDIBLE WHEEZING, O2 SATURATION IS 93% ON 3L. CALL LIGHT WITHIN REACH.
--- NOTE | 2017-08-02 01:31 | NUR ---
PATIENT RESTING COMFORTABLY IN BED, BREATHING IS EVEN AND UNLABORED. O2 SATURATION IS 94% ON 3L O2 VIA NC. FLACC SCORE OF 0. CALL LIGHT WITHIN REACH.
--- NOTE | 2017-08-02 04:15 | NUR ---
PATIENT RESTING COMFORTABLY IN BED, BREATHING IS EVEN AND UNLABORED. DENIES NEEDS AT THIS TIME. PAIN IS 0/10, BREATHING IS EVEN AND UNLABORED. TITRATED O2 TO 1L VIA NC, O2 SATURATION IS 92%. PULSE IS 85. ASSESSMENT DONE, NEW ABD PAD APPLIED TO KINGSLEY DRAIN SITE. CALL LIGHT WITHIN REACH.
--- NOTE | 2017-08-02 05:32 | NUR ---
PATIENT'S NIGHT WAS UNEVENTFUL. HE HAS BEEN RESTING COMFORTABLY IN BED. VSS, PAIN HAS BEEN WELL CONTROLLED WITH PRN PERCOCET AND X1 DOSE OF 2 MG IV MORPHINE. HEART RATE HAS BEEN LESS THAN 100 THROUGHOUT SHIFT, REMAINS IN A-FIB. O2 TITRATED TO 1L O2 VIA NC, SATS REMAINING ABOVE 90%. PATIENT HAS HAD MINIMAL SEROSANGENOUS DRAINAGE FROM INSERTION SITE OF KINGSLEY DRAIN. URINE OUTPUT IS QS. NO NEW SHADOWING AT INCISION SITES. NO ACUTE CHANGES FROM BEGINNING OF SHIFT. PATIENT DOING WELL, OVERALL.
--- NOTE | 2017-08-02 06:05 | NUR ---
PATIENT RESTING COMFORTABLY IN BED, BREATHING IS EVEN AND UNLABORED. O2 SATURATION IS 90% ON 1L O2 VIA NC, HEART RATE IS 89. REPORTS 3/10 PAIN IN ABD, PRN PERCOCET GIVEN PER EMAR. PATIENT DENIES FURTHER NEEDS AT THIS TIME. CALL LIGHT WITHIN REACH.
--- NOTE | 2017-08-02 08:35 | NUR ---
PT IN BED AWAKE. SET UP FOR BRK. EMPTYED URNIAL. PICKED UP ROOM. EMPTYED GARBAGE.
--- NOTE | 2017-08-02 09:01 | NUR ---
PT COMFORTABLE. UP TO CHAIR TO EAT BREAKFAST. JUST FINISHED BREATHING TREATMENT. PAIN LEVEL 4/10. WITHIN PAITIENT COMFPORT LEVEL. GAVE PT AN ENSURE. O2 @1L/MIN. WATCHING TV.
--- NOTE | 2017-08-02 10:27 | NUR ---
PT STILL UP IN CHAIR. NO PAIN. ITEMS AND CALL LIGHT WITHIN REACH. DEFERED SHOWER UNTIL LATER.
--- NOTE | 2017-08-02 14:56 | NUR ---
PT OFF FLOOR FOR CHOLANGIOGRAM NOW.
--- NOTE | 2017-08-02 15:40 | NUR ---
PT IN BED AWAKE. EMPTYED GARBAGE. FRESH ICE WATER
--- NOTE | 2017-08-02 17:54 | NUR ---
CHOLANGIOGRAM DONE TODAY. PRN MORPHINE GIVEN @1540. PT ON 1L O2 WITH SATS >90%. KINGSLEY DRAIN INTACT. 20ML TOTAL SEROSANGENOUS DRAINAGE. T TUBE CLAMPED. PT REFUSED SHOWER TODAY BECAUSE HE HAD A BUSY TIRING DAY. IV CHANGED TO RIGHT FORARM. PT ON TELE #1. A-FIB. HR AROUND 95 THROUOUGHT DAY. LUNGS SOUND DISTANT WITH FINE CRACKLES. ENCOURAGE IS. D5LR @ 75ML/HR
--- NOTE | 2017-08-02 17:54 | NUR ---
OFFERED PATIENT SHOWER. PATIENT WOULD LIKE TO WAIT UNTIL TOMORROW DUE TO BEING WORN OUT AFTER TODAYS ACTIVITIES.
--- NOTE | 2017-08-02 19:30 | NUR ---
BEDSIDE REPORT RECEIVED FROM OFFGOING RNS. PT SITTING AT EDGE OF BED, DENIES NEEDS AT THIS TIME.
--- NOTE | 2017-08-02 20:50 | NUR ---
PT ASSESSMENT COMPLETE. PT RESTING AT EDGE OF BED, PT ABLE TO LAY BACK INDEPENDENTLY. LUNG SOUNDS COARSE/DIM. BT'S ACTIVE, ABD MILDLY DISTENDED AND TENDER. PT DENIES HAVING BM, REPORTS FLATUS. KINGSLEY AND T-TUBE PRESENT. UPPER ABD WRAPPED WITH ABD AND MONSERRAT WRAP. PT DENIES PAIN, NAUSEA, OR SOB AT THIS TIME. DENIES NEEDS. CALL LIGHT WITHIN PT REACH.
--- NOTE | 2017-08-02 22:35 | NUR ---
PT UP TO EDGE OF BED TO USE URINAL, CALLS APPROPRIATELY TO HAVE URINAL EMPTIED. PT DENIES OTHER NEEDS AT THIS TIME. CALL LIGHT WITHIN REACH.
--- NOTE | 2017-08-03 00:45 | NUR ---
PT RESTING IN BED WITH EYES CLOSED. RESPIRATIONS EVEN AND UNLABORED. SA02 92%, HR 92. PT APPEARS TO BE SLEEPING. CALL LIGHT WITHIN REACH.
--- NOTE | 2017-08-03 03:40 | NUR ---
PT ASSESSMENT COMPLETE. PT RESTING IN BED WITH EYES CLOSED. WAKES EASILY TO IV PUMP ALARMING. PT DENIES PAIN, NAUSEA, SOB. O2 CONTINUES ON 1 LPM, SAO2 IN 90'S. PT REPORTS PRODUCTIVE COUGH, STATES THAT HE HAS BEEN SWALLOWING PHLEGM. LUNG SOUNDS REMAIN ADVENTITOUS. ABD INCISION REMAINS REINFORCED WITH ABD AND MONSERRAT WRAP, MODERATE AMOUNT OF SEROSANGUENOUS DRAINAGE NOTED, UNCHANGED FROM PREVIOUS ASSESSMENT. SMALL AMOUNT OF SEROSANGUENOUS DRAINAGE PRESENT IN KINGSLEY DRAIN. T TUBE REMAINS CAPPED. PT DENIES NEEDS AT THIS TIME. CALL LIGHT WITHIN REACH.
--- NOTE | 2017-08-03 05:33 | NUR ---
PT RESTED WELL THIS SHIFT. NO REPORTS OF PAIN, NAUSEA, SOB. O2 @ 1LPM. CONTINOUS PULSE OX. ABD PAD AND MONSERRAT WRAP TO ABDOMINAL INCISION WITH MODERATE SEROSANGUINOUS DRAINAGE PRESENT. KINGSLEY WITH SS DRAINAGE, T TUBE CAPPED. TELE 1, HR IRREGULAR, 80-90'S. LUNG SOUNDS COARSE, DIM. PT HAS PRODUCTIVE COUGH. ENCOURAGE COUGH/DEEP BREATHING/IS USE. 1 PA, PT SITS ON BEDSIDE INDEPENDENTLY. USES URINAL APPROPRIATELY UO QS. DRLR @ 75. LOW APPETITE, SUPPLEMENT WITH ENSURE.
--- NOTE | 2017-08-03 07:15 | NUR ---
BEDSIDE HANDOFF REPORT RECEIVED FROM NAVY MATERIAL INSPECTOR RN. PT SLEEPING IN BED. IV FLUIDS INFUSING AT 75 ML/HR. PT ON 1L NC, O2 SATS 94%. T-TUBE AND KINGSLEY DRAIN IN PLACE, ABD DRESSINGS INTACT, OLD DRAINAGE NOTED. PT DENIES NEEDS AT THIS TIME.
--- NOTE | 2017-08-03 08:35 | NUR ---
PT ASSISTED TO EDGE OF BED TO USE URINAL. PT RATING PAIN 6/10 TO ABD, REQUESTING PAIN MEDICATION, 1 TAB PERCOCET GIVEN. PT ON 1L NC, LUNG SOUNDS WITH EXPIRATORY WHEEZE AND RHONCHI IN BASES, ENCOURAGES I/S AND ACAPELLA, HUMIDIFICATION ADDED TO OXYGEN FOR COMPLAINT OF BLOODY NOSE. PT TOLERATAING CARDIAC DIET, POOR APPETITE, DENIES NAUSEA, BOWEL TONES ACTIVE. PT OVERALL APPEARANCE OF JAUNDICE, T TUBE REMAINS CLAMPED. KINGSLEY DRAIN EMPTIED, SEROSANGUINOUS FLUID. CMS INTACT, NO EDEMA NOTED. DISCUSSED PLAN OF , ENCOURAGED TO BE MORE ACTIVE TODAY. PT DENIES OTHER NEEDS AT THIS TIME.
--- NOTE | 2017-08-03 09:20 | NUR ---
MARLEENVE DONE. PATIENT UP TO SHOWER WITH ONE PERSON ASSIST. PATIENT SITTING UP TO CHAIR. ORAL CARE DONE. LINENS CHANGED. PATIENT STATES THAT HE FEELS MUCH BETTER AFTER SHOWER.
--- NOTE | 2017-08-03 09:21 | NUR ---
PT SALINE LOCKED FOR SHOWER. PT BEING ASSISTED BY NURSE AIDE.
--- NOTE | 2017-08-03 10:30 | NUR ---
PT COMPLETED WITH SHOWER. DRAIN SPONGE APPLIED TO KINGSLEY DRAIN INSERTION SITE, SCURED WITH TAPE. PT SITTING IN CHAIR. PT DENIES NEEDS AT THIS TIME.
--- NOTE | 2017-08-03 10:30 | NUR ---
PATIENT SITTING UP IN CHAIR. ORDERED LUNCH. NO OTHER NEEDS AT THIS TIME. CALL BUTTON IN REACH.
--- NOTE | 2017-08-03 11:30 | NUR ---
CARE CONFERENCE ATTENDEES: PATIENT. PT DID NOT SHOW UP PLANNED. STAFF: DR BURNS, MYSELF CASE MANAGEMENT, DIANNA RT, GASTON PT, DIANNA RN, BUD SURGICAL ENDOSCOPIST, [facility], [facility]. 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
--- NOTE | 2017-08-03 11:40 | NUR ---
PT SITTING IN CHAIR, EATING LUNCH. SALINE LOCKED PER DR. BURNS. ATTEMPTING TO WEAN TO ROOM AIR, CONTINUOUS PULSE OX IN PLACE. PT DENIES NEEDS AT THIS TIME.
--- NOTE | 2017-08-03 13:04 | NUR ---
INVOLVED IN CARE CONF FOR PT TODAY. HE SEEMS TO BE UNDERSTANDING, AND VOICING THAT HE IS WILLING TO DO WHAT HE NEEDS TO. [facility], AND FURTHER CARE WILL BE FOLLOWED UP BY THEM. HE HAS KEPT A GOOD ATTITUDE, WILL CONTINUE TO FOLLOW
--- NOTE | 2017-08-03 13:06 | NUR ---
PT RESTING IN BED, O2 SATS 95% ON ROOM AIR, CONTINUOUS PULSE OX IN PLACE. PT GIVEN IV LASIX PER ORDER. PT REQUESTING TO REST, DENIES OTHER NEEDS AT THIS TIME.
--- NOTE | 2017-08-03 16:39 | NUR ---
PT ASSISTED TO BATHROOM, HAD MEDIUM BOWEL MOVEMENT. PT WALKED IN [place] WITH NURSING STAFF. PT ASSISTED BACK TO BED. PT DENIES OTHER NEEDS AT THIS TIME.
--- NOTE | 2017-08-03 17:03 | NUR ---
URINE OUTPUT 1300 AFTER IV MD MARIVEL NOTIFIED PER HIS REQUEST, NO NEW ORDERS AT THIS TIME.
--- NOTE | 2017-08-03 17:50 | NUR ---
PATIENT SITTING ON BED SIDE WATCHING TV. FRESH ICE WATER. NO NEEDS AT THIS TIME.
--- NOTE | 2017-08-03 18:18 | NUR ---
PT WEANED TO ROOM AIR. PT UP WITH SBA. TOLERATING CARDIAC DIET, BETTER APPETITE TODAY. KINGSLEY DRAIN REMOVED BY DR. LUIS, ABD INCISIONS OPEN TO AIR, STERISTRIPS IN PLACE. PT GIVEN 20 MG IV LASIX. VOIDING QS. PT HAD BM TODAY.
--- NOTE | 2017-08-03 20:22 | NUR ---
PT LAYING IN BED, AWAKE. VERY PLEASENT DEMEANOR, FRIENDLY. ALERT AND ORIENTED X4. T-TUBE IN PLACE AND CLAMPED. LAP SITES AND INCISION WELL APPROXIMATED. DENIES NAUSEA. PT HAS CALL LIGHT. FRESH ICE WATER. CALL LIGHT IN REACH. NO FURTHER NEEDS.
--- NOTE | 2017-08-03 21:46 | NUR ---
patient sitting up on side of bed. emptied urinal. whiteboard updated, room tidied. refilled ice water and ice cup.
--- NOTE | 2017-08-03 21:56 | NUR ---
PT COMPLAINED OF 6/10 PAIN. GAVE PERCOCET FOR PAIN. TURNED HEAT DOWN IN ROOM, PER PT REQUEST. CALL LIGHT IN REACH.
--- NOTE | 2017-08-04 | NUR ---
patient asleep in bed does not need anything at this time.
--- NOTE | 2017-08-04 02:20 | NUR ---
PATIENT ASLEEP IN BED.
--- NOTE | 2017-08-04 04:15 | NUR ---
PATIENT ASLEEP IN ROOM
--- NOTE | 2017-08-04 04:21 | NUR ---
PT APPEARS TO BE SLEEPING. RR WNL AND UNLABORED.
--- NOTE | 2017-08-04 05:41 | NUR ---
pt up to bathroom, tolerated ambulating with standby assist well. after pt back in bed, he complained of 5/10 pain, states "its just jose aching." gave percocet for pain.
--- NOTE | 2017-08-04 08:36 | NUR ---
PT WALKED TO , IS A 1PA AND DID WELL, HAD A BM, BACK TO BED. PT IS CURRENTLY SITTING ON THE SIDE OF THE BED WITH HIS NEXT TO HIM. CALL LIGHT IN REACH. TOOK BREAKFAST TRAY OUT, PT ATE 30%
--- NOTE | 2017-08-04 09:00 | NUR ---
FULL BODY ASSESMENT DONE, PATIENT STATES " I SLEPT OKAY LAST NIGHT, BUT I JUST WANT TO GO HOME". PLAN TO DISCHARGE TODAY.
--- NOTE | 2017-08-04 10:40 | NUR ---
PT IS RESTING IN BED WITH CALL LIGHT IN REACH. PT DID NOT NEED ANYTHING ELSE AT THE MOMENT
[2017-08-04] MEDS ORDERED: TOPROL XL200 MG PO (11:59)
[2017-08-04] MEDS ORDERED: POTASSIUM CHLO20 ME1 PO (12:01)
[2017-08-04] MEDS ORDERED: LASIX20 MG PO (12:01)
--- NOTE | 2017-08-04 13:00 | NUR ---
PROVIDED PATIENT WITH EDUCAITON ON AFIB, AND HEART FAILURE, ADDRESSED QUESTIONS AND CONCERNS. DISCUSSED WEIGHING SELF EVERYDAY, AND WHAT A DRY WEIGHT IS. DISCUSSED SIGNS AND SYMPTOMS OF INFECTION, AND CARE TO INSCION SITE AND T-TUBE. PATIENT VERBALIZED UNDERSTANDING AND ABLE TO REPEAT BACK. FAMILY MEMBER PRESENT TO LEARN WELL. DISCUSSED WHAT THE MEDICAITONS ARE FOR AND IMPORTANCE EACH ONE IMPACTS WITH AFIB AND HEART FAILURE. VS STABLE.
--- NOTE | 2017-08-04 13:24 | NUR ---
New heart failure education initiated prior to discharge. Patient and present. 20 minutes spent on face to face time education. 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 Spouse is the primary cook. Patient does some cooking Pillbox- Yes Transportation- Drives self and spouse drives too [facility]acy [facility] -prefers [facility] [place] any that apply: smoker, homeless, ETOH, drug abuse, uninsured, BMI >40 PHQ-9 and Mini-cog deferred since patient in wanting to discharge. Given Learning to Live with Heart failure book, daily weight, zones forms, and low sodium shopping list. Educated on what is heart failure. Instructed on need for QD weights, symptoms and when to contact provider. Low sodium diet education started. Patient verbalized understanding of weights with teach back Patient agrees to recieving a follow up call on Tuesday. PCP follow up visit is being arranged by [facility] staff and Dr Acuna. Invited patient and spouse to consider outpatient cardiac rehab in 6 weeks; as well as further outpatient education. Spouse is very interested.
--- NOTE | 2017-08-08 10:03 | NUR ---
Follow up call #1 completed. Tash Emerson, agrees to come in on at 1430 to watch What is HF video,pt encouraged to join. Has f/u with pcp 08/25 and [place] [facility] will call him for an appointment in Jul. Can you bring the discharge paper to the phone in case we need to talk about it? Patient has discharge papers "somewhere" What did you eat for your last meal? Has not eaten today. Yesterday had ham, mac and cheese, and bologna sandwich Patient encouraged to consider following a low salt diet and avoid processed meats. Were you able to picker packer your medications? Yes picked up all of the ones called in. Having trouble swallowing the large one(confirmed it was Chlor Robert).Patient given tips on how to more easily swallow it. Have you missed any of your medications? Denies What is your weight today? 155# down from 163# on admit Have you had any of the following since you have been home? denies other symptoms listed for patient. States "doing alright" Encouraged to call PCP or go to ED for new sypmtoms. Who is helping you at home? Do you know how to reach them? [facility] but states it is difficult to talk to anyone What date is your follow up visit with 08/25/16 and [facility] for [facility] How are you going to get there? Drive, has own car. Has already been driving What other questions do you have? None.
--- NOTE | 2017-08-11 14:43 | NUR ---
Spoke to Mr and Mrs Emerson by phone earlier this week for heart failure follow up call. Mrs Emerson was to come today at 1430 for discussion and to veiw video. Encouraged Mr Emerson to come in too. She did not show today and I left message on the home phone to contact my direct work line.
== END 2017-08-04 13:05 | disposition home or self-care (01) | DRG 411 ==
LOC: ED 17:49 → MS 07-30 00:28
PROVIDERS: ADMIT Surgery
PROC: 0F9900Z Drainage of Common Bile Duct with Drainage Device, Open Approach (ICD-10-PCS; 2017-07-30)
PROC: 0FJ44ZZ Inspection of Gallbladder, Percutaneous Endoscopic Approach (ICD-10-PCS; 2017-07-30)
PROC: 0FB94ZX Excision of Common Bile Duct, Percutaneous Endoscopic Approach, Diagnostic (ICD-10-PCS; 2017-07-30)
PROC: 0FT40ZZ Resection of Gallbladder, Open Approach (ICD-10-PCS; principal; 2017-07-30 17:00)
DX: K80.42 Calculus of bile duct with acute cholecystitis without obstruction (principal); K83.1 Obstruction of bile duct; J96.01 Acute respiratory failure with hypoxia; I97.89 Other postprocedural complications and disorders of the circulatory system, not elsewhere classified; I13.0 Hypertensive heart and chronic kidney disease with heart failure and stage 1 through stage 4 chronic kidney disease, or unspecified chronic kidney disease; I48.91 Unspecified atrial fibrillation; I25.10 Atherosclerotic heart disease of native coronary artery without angina pectoris; E78.5 Hyperlipidemia, unspecified; I10 Essential (primary) hypertension; J44.9 Chronic obstructive pulmonary disease, unspecified; M19.90 Unspecified osteoarthritis, unspecified site; Z79.82 Long term (current) use of aspirin; I48.0 Paroxysmal atrial fibrillation; F17.210 Nicotine dependence, cigarettes, uncomplicated; K59.00 Constipation, unspecified; N18.3 Chronic kidney disease, stage 3 (moderate); I50.9 Heart failure, unspecified; N52.9 Male erectile dysfunction, unspecified
CPT/HCPCS: 00790; 36415; 47531; 71020; 74178; 74300; 76705; 80053; 82150; 82247; 82465; 83615; 83690; 83880; 84100; 84478; 84484; 84550; 85014; 85025; 85032; 85049; 93306; 94640; 94667; 94668; 94762; 96361; 96374; 96375; 96376; 99285; 99407; J0330; J0690; J1100; J1170; J1644; J2250; J2270; J2370; J2405; J2704; J3010; J7030; J7120; Q9967

== ENCOUNTER 2017-09-17 17:10 | Inpatient (IN) | payer MEDICARE ==
[~2017-09-17] VITALS: Ht 177.8 cm; Wt 74.2 kg
[~2017-09-17 17:10] MED LIST changes: +CHLORTHALIDONE50 MG PO; +COLACE100 MG PO; +CRESTOR40 MG PO; +FENOFIBRATE145 MG PO; +LASIX20 MG PO; +OMEPRAZOLE20 MG PO; +PERCOCET 5-3251 EACH PO; +POTASSIUM CHLO20 ME1 PO; +TOPROL XL200 MG PO; +VIAGRA100 MG PO; +ZESTRIL40 MG PO
--- NOTE | 2017-09-17 20:00 | NUR ---
PT ARRIVED TO FLOOR VIA ED RN AND STRETCHER. PT TRANSFERED TO BED WITH NO ISSUES. PT IS HIGH SPIRITS AND DENIES DIZZINESS OR SOB.
--- NOTE | 2017-09-17 20:30 | NUR ---
PT VITALS STABLE AT THIS TIME. WILL SEND STAFF TO GO GET 1ST UNIT OF BLOOD. PT WILL NEED 3 UNITS OF BLOOD TO START. WILL CONTINUE TO CLOSELY MONITOR. ADMISSION AND ASSESSMENT COMPLETED. PT IS ALERT AND ORIENTED. PT EDUCATED NOT TO GET UP WITHOUT STAFF D/T REPORTED DIZZINESS WHEN STANDING AT HOME. LUNGS CLEAR AND DIMINISHED IN BASES. WILL ENGOURAGE INCENTIVE SPIROMETER. PT IS ON 2L NC AT THIS TIME.
--- NOTE | 2017-09-17 20:35 | NUR ---
PER DR. BURNS GIVE ALL 3 UNITS OVER 150MLS/HR EACH. CHECK CBC ONE HOUR AFTER LAST UNIT.
--- NOTE | 2017-09-17 20:45 | NUR ---
PER DR LUIS GIVE BLOOD OVER 30 MINUTES-1HOUR EACH. VERIFIED WITH DR. BURNS WILL GIVE 1ST UNIT OVER 30MINUTES-1 HOUR. MD WOULD LIKE UPDATED WITH VITALS AND PATIENT STATUS BEFORE STARTING NEXT UNIT.
--- NOTE | 2017-09-17 21:45 | NUR ---
PT 1ST UNIT COMPLETED. PER DR BURNS GIVE NEXT TWO UNITS OVER 150ML/HR. PT BLOOD PRESSURE IS 109/48 MAP 63. PT DENIES DIZZINESS AND SOB. WILL CONTINUE TO CLOSELY MONITOR.
--- NOTE | 2017-09-17 22:35 | NUR ---
NEXT UNIT OF BLOOD START. PT IS RESTING WELL AT THIS TIME. WILL CONTINUE TO CLOSELY MONITOR.
--- NOTE | 2017-09-18 | NUR ---
PT POTASSIUM INCREASED BACK TO 131MLS/HR. INITIALLY PT WAS ONLY ABLE TO TOLERATED POTASSIUM AT 75ML/HR. NO COMPLAINTS NOW. WILL COTINUE TO CLOSELY MONITOR.
--- NOTE | 2017-09-18 01:30 | NUR ---
NEXT UNIT OF BLOOD STARTED. PT DENEIS ANY NEEDS AT THIS TIME. WILL CLOSELY MONITOR.
--- NOTE | 2017-09-18 02:30 | NUR ---
UPDATED MD THAT PT HAS ONLY VOIDED ONCE THIS SHIFT OF 275ML. WILL CONTINUE TO MONITOR.
--- NOTE | 2017-09-18 02:45 | NUR ---
PER MD IF H/H <6 WILL TRANSFUSE 2 MORE UNITS. H/H 7-8 WILL INFUSE REMAINING 1 UNIT. WILL CALL MD IF ANY QUESTIONS.
--- NOTE | 2017-09-18 04:30 | NUR ---
UPDATED LAB THAT WE MAY INSUDE A 5TH BAG PRBC. LAB WILL PREPARE NEXT BAG AND HAVE ON STAND-BY IF NEEDED. WILL COTNINUE TO CLOSELY MONITOR.
--- NOTE | 2017-09-18 05:25 | NUR ---
CALLED MD TO UPDATE REGURDING PT STATUS AND H/H LEVEL THIS AM AFTER 3 UNITS OF BLOOD PER ORDERS. PT H/H 8.0/23.3. PER MD GIVE 4TH UNIT OF BLOOD AT THIS ITME AND SLOW IT DOWN TO 100ML/HR. PT BP IS 132/55 MAP 75. PT DENIES DIZINESS AND SOB. PT STATES "I FEEL WAY BETTER THAN YESTERDAY". WILL CONTINUE TO CLOSELY MONITOR.
--- NOTE | 2017-09-18 05:30 | NUR ---
CALLED LAB. BLOOD WILL BE READY IN APROX 15-20 MINUTES. WILL SEND STAFF MEMBER TO GET NEXT UNIT WHEN AVAILABLE.
--- NOTE | 2017-09-18 05:55 | NUR ---
NEXT UNIT BLOOD STARTED PER MD GIVE AT 100MLS/HR. PT HAS BEEN NPO SINCE MIDNIGHT. WILL CONTINUE TO CLOSELY MONITOR. PT DENIES ANY NEEDS AT THIS ITME.
--- NOTE | 2017-09-18 07:45 | NUR ---
REPORT RECEIVED FROM CHELITA NOVOA. PT AWAKE IN BED, DENIES PAIN OR SOB AT THIS TIME, REPOSITIONED UP IN BED. HAS 2L/O2 IN PLACE WITH SATURATIONS 100% C/O NASAL DRYNESS, TOOK O2 OFF AND PT CONTINUES 100% ON ROOM AIR. RT IN TO DO IS WITH PT. PT IS ALERT AND ORIENTED, AWARE OF NPO STATUS, CALL LIGHT IN HAND.
--- NOTE | 2017-09-18 09:27 | NUR ---
PT AWAKE IN BED, VISITOR CRISTIANO AND TIA IN ROOM, PT DENIES SOB OR PAIN. HR 90-100, RR 24.
--- NOTE | 2017-09-18 11:25 | NUR ---
IV LOPRESSOR GIVEN, HR WENT FROM 80'S TO 70'S. PT AWAKE IN BED, DENIES PAIN/SOB OR OTHER NEEDS. DR LUIS CALLED IN WITH PLAN TO DO EGD AT 1300 TODAY, PT INFORMED, NO QUESTIONS.
--- NOTE | 2017-09-18 12:58 | NUR ---
PT OFF UNIT WITH OR NURSES FOR EGD
--- NOTE | 2017-09-18 13:19 | NUR ---
PT BACK FROM OR
--- NOTE | 2017-09-18 13:30 | NUR ---
09/18/17 1330 Odalys Wagner 1315-PATIENT ARRIVED BACK TO ROOM 130 VIA STRETCHER. NONAROUSABLE. LAYING ON LEFT LATERAL SIDE. 4L NC O2 SAT 97$ 1320-PATIENT AROUSING TO VERBAL STIMULI LOWER BP. PATIENT REPOSITIONED TO NEW BED VIA SLIDING AND LAYING SUPINE. BP INCREASED. PATIENT WAKING UP. 1325-PATIENT AWAKE DENIES PAIN OR NAUSEA.
--- NOTE | 2017-09-18 13:38 | CONS ---
[facility] [address] [place] [address] Signed DATE OF CONSULTATION: 09/17/2017 TIME: 08:45 p.m. PROBLEM: Profound anemia and melena. HISTORY OF PRESENT ILLNESS: This 67-year-old white man is known to me from the past having undergone laparoscopic with conversion to open cholecystectomy with open common duct exploration on July 30, 2017. A T-tube was placed and removed a few weeks after operation. He has been doing well overall. Approximately two weeks ago, he began having dark stool. He was given Xarelto as an anticoagulant, obviously unaware of these current symptoms of melena or dark stool. His indication for anticoagulation was atrial fibrillation. DICTATION ENDS HERE MD BERKLEY Galicia/DEENA /[id number] Electronically Signed By: BRENNAN LUIS MD 09/18/17 1338 PATIENT NAME: RODRICK JAVIER CONSULTATION DATE OF : 48 PHYSICIAN: BRENNAN LUIS MD REPORT #: [id number] REPORT IS CONFIDENTIAL AND NOT TO BE RELEASED WITHOUT AUTHORIZATION
--- NOTE | 2017-09-18 13:38 | CONS ---
[facility] [address] [place], [place] [address] Signed DATE OF CONSULTATION: 09/17/2017 TIME: 08:45 p.m. PROBLEM: Melena with profoundly low hematocrit (15.3). HISTORY OF PRESENT ILLNESS: This 67-year-old white man was admitted to the intensive care unit by Dr. Acuna with what sounds like at least one and possibly two weeks of dark stool and recently clear evidence of melena. He had near syncope over the past several weeks and increasing lightheadedness. The patient is known to me from the past having undergone open cholecystectomy with common duct exploration for large obstructing common duct stones on July 30, 2017. A T-tube was placed and removed in my office a few weeks after operation. He has been doing quite well otherwise. He is known to have atrial fibrillation and a distant history of open heart bypass and valvular repair. His chronic atrial fibrillation was managed by initiation of Xarelto anticoagulant. The patient additionally has hypertension and clinical evidence of reflux. His medications at admission include aspirin 81 mg daily, lisinopril, omeprazole, Colace, and Percocet. Additionally, he has been taking metoprolol, Lasix, and potassium chloride. He gets much of his care at the [facility], who recently initiated Xarelto anticoagulant. At present, the patient has no complaints of abdominal pain. He does describe dysphagia. He has never had colonoscopy in the past nor upper endoscopy and he has never had gastrointestinal bleeding that he is aware of. Notably, he has had no hematemesis during the course of all of this. REVIEW OF SYSTEMS: He denies any chest pain or shortness of breath particularly. He has been relatively hypotensive. PHYSICAL EXAMINATION: VITAL SIGNS: Currently blood pressure is between 79 and 99 with a pulse of 93. GENERAL: Pleasant white man, who is resting comfortably in a darkened room. Electronically Signed By: BRENNAN LUIS MD 09/18/17 5088 PATIENT NAME: RODRICK JAVIER CONSULTATION DATE OF : 48 PHYSICIAN: BRENNAN LUIS MD REPORT #: [id number] REPORT IS CONFIDENTIAL AND NOT TO BE RELEASED WITHOUT AUTHORIZATION [facility] [address] [place], [place] [address] Signed NECK: Examination shows his trachea to be midline. He has no jugular venous distention. LUNGS: He has no tachypnea. Chest shows normal respiratory excursion. ABDOMEN: Soft, nontender, and nondistended. Incisions from prior operation are healing well. EXTREMITIES: Show no clubbing, cyanosis, or edema. LABORATORY DATA: Presentation lab study shows white count of 13.7 with hematocrit of 15.5 with hemoglobin of 5.7 and platelets 290,000. Electrolytes were abnormal for potassium at only 2.8, bicarb of 19, creatinine 1.96. Liver enzymes are normal including ALT of 13, alkaline phosphatase of 36, AST of 21, and bilirubin of 0.5. Initial lab studies show his INR to be elevated at 2.9, protime at 30.8, PTT of 38. ASSESSMENT AND PLAN: It sounds as though the patient has had dark stools for at least two weeks and possibly three. This would imply a slow, but persistent enteric leakage of blood. Most likely this represents an upper gastrointestinal source, possibly an ulcer and so on. It is notable considering he has been on omeprazole. He is known to have a persistent alcohol intake previously to his other operation, uncertain to the degree to which that is an issue now. He does describe mild dysphagia and this despite being on omeprazole. Transfusion therapy is being initiated as well as a reversal plan for his anticoagulant. This will include tranexamic acid as well as Kcentra to include thrombin clotting factor. I had initially considered the idea of upper endoscopy tonight as it is highly probable he has an upper gastrointestinal source of bleeding; however, given his significantly abnormal electrolytes, creatinine of 1.96 and potassium 2.8 and lack of initiation of his transfusion plan so far, it may be best to resuscitate a bit more. We will plan to do upper endoscopy tomorrow. I would not recommend initiation of a bowel prep at this time given his uncertain hemodynamics pending infusion of blood. If he should regarding bleeding, particularly hematemesis, a more prompt upper endoscopy could be undertaken. If upper endoscopy is negative, consideration will be made for bowel prep for colonoscopy. It is notable he has not had colonoscopy in the past. We will discuss all of this with Dr. Acuna, his managing physician as well. Brennan Luis MD Electronically Signed By: BRENNAN LUIS MD 09/18/17 1338 PATIENT NAME: RODRICK JAVIER CONSULTATION DATE OF : 48 PHYSICIAN: BRENNAN LUIS MD REPORT #: [id number] REPORT IS CONFIDENTIAL AND NOT TO BE RELEASED WITHOUT AUTHORIZATION [address] [address] Signed /[facility] /[id number] cc: Mya Acuna MD Electronically Signed By: BRENNAN LUIS MD 09/18/17 1338 PATIENT NAME: YAYARODRICK CONSULTATION DATE OF : 48 PHYSICIAN: BRENNAN LUIS MD REPORT #: [id number] REPORT IS CONFIDENTIAL AND NOT TO BE RELEASED WITHOUT AUTHORIZATION
--- NOTE | 2017-09-18 14:03 | NUR ---
VIAL SIGNS COMPLETED AND I/O COMPLETED. PT RESTING WITH HOB ELEVATED 30 DEGREES, WARM BLANKET GIVEN.
--- NOTE | 2017-09-18 15:29 | NUR ---
BOWEL PREP STARTED, CLEAR LIQUID TRAY ORDERED FOR PT. PT DROWSY BUT AWAKENS EASILY, DENIES PAIN OR OTHER NEEDS.
--- NOTE | 2017-09-18 15:50 | EKG ---
[facility] [address] [facility] [place] [address] \T\ T wave abnormality, consider lateral ischemia Prolonged QT Abnormal ECG When compared with ECG of 29-JUL-2017 18:40, T wave inversion now evident in Lateral leads Confirmed by INEZ BURNS MD ([id number]) on 09/18/2017 3:49:59 PM Electronically Signed By: INEZ BURNS MD 09/18/17 1550 PATIENT NAME: RODRICK JAVIER Electrocardiogram DATE OF : 48 PHYSICIAN: INEZ BURNS MD REPORT #: [id number] REPORT IS CONFIDENTIAL AND NOT TO BE RELEASED WITHOUT AUTHORIZATION
--- NOTE | 2017-09-18 16:14 | NUR ---
PT UP SITTING AT EDGE OF BED, HR 90'S, TOLERATING CLEAR LIQUID TRAY.
--- NOTE | 2017-09-18 17:50 | NUR ---
PT UP TO BSC FOR LIQUID DARK BLACK BOWEL MOVEMENT HEME TESTED POSITIVE. HR STEADY WHEN UP, DENIES DIZZINES/LIGHTHEADEDNESS. BACK TO BED, WARM BLANKETS GIVEN AND CALL LIGHT IN HAND. CONTINUES TO WORK ON DRINKING BOWEL PREP.
--- NOTE | 2017-09-18 20:00 | NUR ---
PT ASSESSMENT COMPLETED. LISTENED PT WHILE SITTING AT EDGE OF BED. PT LUNGS CLEAR AND DIMINISHED. PT IS ON ROOM AIR WITH SPO2 100%. PT UP TO BEDSIDE CAMMODE WITH NO ISSUES. PT HAS BLACK COLORED LIQUID STOOL. PT IS WORKING ON 2ND BOTTLE OF BOWEL PREP AT THIS TIME. WILL CONTINUE TO CLOSELY MONITOR.
--- NOTE | 2017-09-18 21:00 | NUR ---
PT UP TO BEDSIDE CAMMODE. PT DENIES DIZZINES. PT BACK TO BED. NEW IV STARTED D/T OTHER IV GOING BAD. PT TOELRATED WELL. WILL CONTINUE TO CLOSELY MONITOR.
--- NOTE | 2017-09-18 22:30 | NUR ---
PT UP TO CAMMODE. STOOL REMAINS UNCHANGED FROM START OF SHIFT. PT IS WORKING ON LAST BOTTLE OF BOWEL PREP. WILL CONTINUE TO CLOSELY MONITOR. PT CONTINUES TO DENY DIZINESS. PT SITTIN ON EDGE OF BED DRINGING BOWEL PREP.
--- NOTE | 2017-09-18 22:40 | NUR ---
PT BACK TO BEDSIDE CAMMODE WITH ASSIST. PT TOLERATED WELL. NEW BLANKETS IN PLACE PER PT REQUEST. PT DENIES ANY OTHER NEEDS AT THIS TIME. WILL CONTINUE TO CLOSELY MONITOR.
--- NOTE | 2017-09-19 | NUR ---
PT RESTING IN BED AT THIS TIME. PT CALLS TO GET UP TO CAMMODE. WILL CONTINUE TO CLOSELY MONITOR.
--- NOTE | 2017-09-19 02:00 | NUR ---
PT RESTING WELL AT THIS TIME. WILL CONTINUE TO CLOSELY MONITOR. PT CALLS APPROPRIATELY.
--- NOTE | 2017-09-19 04:00 | NUR ---
BOWEL PREP IS COMPLETED. PT WILL BE NPO AT 0800. PT STOOL IS MUCH CLEAR AT THIS TIME. STOOL IS CLEAR TO LIGHT GREEN. WILL CONTINUE TO CLSOELY MONITOR.
--- NOTE | 2017-09-19 06:02 | NUR ---
PT DENIES ANY NEEDS AT THIS TIME. PT CONTINUES TO CALL WHEN NEEDING TO GET UP TO CAMMODE. WILL CLOSELY MONITOR PT. PT JANNA DIZZINES OR SOB.
--- NOTE | 2017-09-19 08:08 | NUR ---
ASSESSMENT COMPLETED, PT DENIES C/O AT THIS TIME. A.M. MEDS GIVEN WITH SIP OF WATER. PT UP TO BSC WITH MINIMAL ASSIST, HAD LIQ GREEN BM AND VOIDED ALSO FOR A TOTAL 200 MLS. PT SITTING ON EDGE OF BED. DR. BURNS IN TO ASSESS PT.
--- NOTE | 2017-09-19 09:52 | NUR ---
PT SLEEPING ON RIGHT SIDE. SCD'S ON BILAT.
--- NOTE | 2017-09-19 10:15 | NUR ---
IN ROOM, PT SITTING ON EDGE OF BED VISITING.
--- NOTE | 2017-09-19 12:27 | NUR ---
PT AWAKE, ASSESSMENT COMPLETED. DENIES C/O OF DISCOMFORT OR TENDERNESS IN ABD. VITAL SIGNS TAKEN. PT REMAINS NPO AND IS AWAITING COLONOSCOPY TODAY.
--- NOTE | 2017-09-19 13:16 | OR ---
[facility] [address] [place], [place] [address] Signed DATE OF OPERATION: 09/18/2017 SURGEON: Brennan Luis MD PREOPERATIVE DIAGNOSES: 1. Melena with hematocrit of 15. 2. Transfusion of 4 units packed red cells, hematocrit 24. POSTOPERATIVE DIAGNOSIS: Small hiatal hernia with Guevara's esophagus. No lesion to account for anemia or bleeding. PROCEDURE: Esophagogastroduodenoscopy with biopsy. ANESTHESIA: Intravenous sedation propofol infusion, Sonia Roa CRNA. INDICATION: This 67-year-old white man is known to me from the past about 2 months ago, undergoing laparoscopic cholecystectomy with conversion to open cholecystectomy and common duct exploration and T-tube placement. He did well from that. In the past 2 weeks, he has had episodes of very dark stool and progressive weakness. He presented to the emergency room yesterday and was admitted by Dr. Acuna. After emergency room evaluation showed him to have hematocrit of only 15. He has had no hematemesis. He does describe some mild dysphagia from time to time. He takes no medications for reflux. He has never had upper endoscopy nor has he had colonoscopy. He is admitted at this time to undergo upper endoscopy to better characterize the problem and the high probability of his anemia and melena from an upper gastrointestinal source. He understands the risks of bleeding, infection, and perforation, and wished to proceed. FINDINGS: There was no lesion to account for anemia on upper endoscopy. He did have a small hiatal hernia and Guevara's epithelium, but no ulceration, varices, neoplasm, Nancy-Nichole tear, gastritis, ulcer or other abnormality including the esophagus, stomach, and duodenum. DESCRIPTION OF PROCEDURE: Electronically Signed By: BRENNAN LUIS MD 09/19/17 1316 PATIENT NAME: RODRICK JAVIER OPERATIVE REPORT DATE OF : 48 PHYSICIAN: BRENNAN LUIS MD REPORT #: [id number] REPORT IS CONFIDENTIAL AND NOT TO BE RELEASED WITHOUT AUTHORIZATION [facility] [address] [place], [place] [address] Signed The patient was brought into the endoscopy suite and placed in the lateral decubitus position, given topical Hurricaine spray hypopharyngeal anesthesia. In the lateral decubitus position with full cardiopulmonary monitoring, he was given intravenous sedation by the aerospace technician with propofol infusion. A bite block was placed. An Olympus upper endoscope was passed in the hypopharynx. The vocal cords appeared normal. The scope was advanced into the esophagus throughout its length and it was normal except for some Guevara's epithelium in the distal portion. There was no sign of stricture, neoplasm, or varices. The scope was passed to the stomach, which was insufflated with air. There was no sign of blood or even clot or erythema. Rugal folds appeared reasonably normal. The pylorus was normal. The scope was passed through into the duodenum. The duodenum was entirely normal. Careful inspection particularly in the pyloric channel and the bulb showed no sign of ulceration or erosion. The scope was withdrawn to the antrum, again showing no sign of neoplasm or ulceration. Retroflexed view was undertaken and the scope withdrawn. A small hiatal hernia was noted. Guevara's epithelium was noted in the distal esophageal area. The scope was straightened withdrawn and narrow band imaging confirmed a high probability of Guevara's epithelium. These areas were biopsied. Careful withdrawal of scope showed no other abnormalities. The patient was taken to the recovery room in good condition having suffered no complication. CONCLUDING DIAGNOSIS: No lesion on upper endoscopy to account for anemia or bleeding. PLAN: He will need a bowel prep anticipating colonoscopy within the next 24 hours. MD BERKLEY Galicia/PIAL /[id number] cc: Mya Acuna MD Electronically Signed By: BRENNAN LUIS MD 09/19/17 1316 PATIENT NAME: RODRICK JAVIER OPERATIVE REPORT DATE OF : 48 PHYSICIAN: BRENNAN LUIS MD REPORT #: [id number] REPORT IS CONFIDENTIAL AND NOT TO BE RELEASED WITHOUT AUTHORIZATION
--- NOTE | 2017-09-19 14:11 | NUR ---
TO ENDO ROOM FOR COLONOSCOPY.
--- NOTE | 2017-09-19 14:44 | NUR ---
PT INVITED ME INTO HIS RM, LAYING IN BED-ALERT AND ORIENTED. I COULD TELL HE WAS IN SOME DISCOMFORT, AND HE SAID HE IS FEELING BETTER.I OFFERED TO PRAY FOR HIM, HE SAID PLEASE. WILL CONTINUE TO FOLLOW NEEDED
--- NOTE | 2017-09-19 15:29 | NUR ---
09/19/17 1529 Constance Smith 0821 - PT ARRIVED TO PACU, AIRWAY HELD, BASLINE AFIB PER BODY BUMPER, BP NOTED TO BE LOW. BODY BUMPER HELPING TO REPOSITION PT.
--- NOTE | 2017-09-19 18:12 | NUR ---
Medications reconciled with pharmacy records and patient chart notes/discharge orders from 08/04/17
--- NOTE | 2017-09-19 18:15 | NUR ---
PATIENT RESTING IN BED. WARM BLANKET GIVEN. NO OTHER NEEDS AT THIS TIME. CALL BUTTON IN REACH.
--- NOTE | 2017-09-19 18:26 | NUR ---
PT TRANSFERED TO FLOOR AFTER SCOPE. PT TOLERATED PROCEDURE WELL. VOIDING WELL POST PROCEDURE. NO BM ON MY SHIFT. ADVANCED DIET TO REGULAR, TOLERATED WELL. PT REQUESTS THAT DOOR AND CURTAIN STAY CLOSED.
--- NOTE | 2017-09-19 19:17 | NUR ---
PT IS SLEEPING AND REQUESTED NOT TO BE WOKE FOR REPORT. RESPIRATIONS EVEN AND NONLABORED. CALL LIGHT WITHIN REACH.
--- NOTE | 2017-09-19 21:40 | NUR ---
WOKE PT TO COMPLETE ASSESSMENT. PT IS ON TELE #7 AND HAS REG RYTHMN, LUNG SOUNDS ARE CLEAR ON RA. PT IS INDEPENDENT IN ROOM AND STATES HE HAS NO WEAKNESS AT THIS TIME. HE IS UP MOVING FREQUENTLY AND HAS REFUSED TO WEAR SCDS. PT HAS NO COMPLAINTS OF PAIN AT THIS TIME AND NO REQUESTS. CALL LIGHT IS WITHIN REACH.
--- NOTE | 2017-09-20 01:53 | NUR ---
PT IS AWAKE IN BED, STATES HE IS UP OFTEN TO USE RESTROOM. PT HAS NO REQUESTS AT THIS TIME, CALL LIGHT IS WITHIN REACH.
--- NOTE | 2017-09-20 03:45 | NUR ---
PT'S TELE LEADS WERE OFF AGAIN, NOTIFIED THAT TELE ORDER WAS DC'D. WOKE PT TO REMOVE TELE AND COMPLETED ASSESSMENT. PT HAD SLIGHT WHEEZE IS RT BASES, ADVISED PT TO COUGH/DEEP BREATHE. PT REPORTS THAT HE IS UP TO THE RESTROOM EVERY HOUR VOIDING A LOT OF URINE D/T LASIX. PT HAS NO PAIN AT THIS TIME AND NO REQUESTS.
--- NOTE | 2017-09-20 04:54 | NUR ---
PT WAS AWAKE THROUGHOUT THE NIGHT WAKING UP TO USE THE RESTROOM. MANY OF THE VOIDS WERE MISSED PT USED TOILET. HOWEVER SOME OF THEM HE LEFT IN THE URINAL. PT IS VOIDING QS AND LASIX WAS GIVEN BEFORE BED. LUNGS DID HAVE SLIGHT EXP WHEEZES. PT IS INDEPENDENT IN THE ROOM AND LIKES THE CURTAIN AND DOOR CLOSED. TELE WAS DC'D. PT IS EAGER TO GO HOME.
--- NOTE | 2017-09-20 06:40 | NUR ---
PATIENTS VITALS TAKEN AND RECORDED. PATIENT DENIES ANY PAIN OR NAUSEA. PATIENT DENIES ANY NEEDS AT THIS TIME. ICE CHIPS PROVIDED PER PATIENT REQUEST. ROCKY LIGHT IN REACH.
--- NOTE | 2017-09-20 07:25 | NUR ---
BEDSIDE REPORT. PT RESTING IN BED. ALERT AND ORIENTED. PT REPORTS NO PAIN AND NO REQUESTS AT THIS TIME. NO DISTRESS NOTED
[2017-09-20] MEDS ORDERED: OMEPRAZOLE20 MG PO (07:50)
--- NOTE | 2017-09-20 07:52 | NUR ---
PATIENT SITTING ON EDGE OF BED EATING BREAKFAST. IN ROOM TO SEE PATIENT. NO OTHER NEEDS AT THIS TIME.
--- NOTE | 2017-09-20 08:30 | NUR ---
PATIENT REFUSED SHOWER DUE TO BEING DISCHARGED TODAY.
--- NOTE | 2017-09-20 08:50 | OR ---
[facility] [address], [place] [address] Signed DATE OF OPERATION: 09/19/2017 SURGEON: Brennan Luis MD PREOPERATIVE DIAGNOSES: 1. Melena. 2. Recent upper endoscopy negative for source of melena. POSTOPERATIVE DIAGNOSES: 1. Pandiverticular disease. No sign of active bleeding. 2. Two small polyps at 45 cm (excised procedure). INDICATION: This 67-year-old white male was admitted to the hospital on September 17, 2017, with 2 weeks of dark black stool. He was noted to have hematocrit of 15.2. He was fluid resuscitated, given transfusion therapy including 4 units of packed red cells and underwent upper endoscopy by me yesterday, where he was found to have no lesion to account for bleeding and certainly no blood in the stomach, duodenum, or esophagus. On that basis and with discontinuance of his bleeding, he underwent a bowel prep yesterday and is now to undergo colonoscopy. The risks of bleeding, infection, and perforation were reviewed with him and his . They understood and wished to proceed. OF SPECIAL NOTE: He has not had colonoscopy in the past. FINDINGS: The prep was excellent. Complete colonoscopy was undertaken of the cecum without question. There were numerous diverticula throughout the colon, most dominantly in the sigmoid and left colon. They are scattered throughout including the right colon. There was no evidence of colon cancer. He did have 2 small polyps at 45 cm, which were excised with hot snare polypectomy technique and cold morcellation technique. The rectum was normal other than a few minimal hemorrhoidal changes. It was a presumption that his bleeding was from the profound diverticulosis, but there was no sign of active bleeding at this time. PROCEDURE: The patient was brought to the endoscopy suite and placed in lateral decubitus position. He was given intravenous sedation with full cardiopulmonary monitoring by the product manager financial services with propofol infusional technique. Digital rectal examination was normal. Electronically Signed By: BRENNAN LUIS MD 09/20/17 0850 PATIENT NAME: RODRICK JAVIER OPERATIVE REPORT DATE OF : 48 PHYSICIAN: BRENNAN LUIS MD REPORT #: [id number] REPORT IS CONFIDENTIAL AND NOT TO BE RELEASED WITHOUT AUTHORIZATION [facility] [address], [place] [address] Signed An Olympus video colonoscope was passed in the rectum and manipulated throughout the colon noting multiple diverticula throughout the colon including the sigmoid and left colon. There was no sign of blood or clot, however. The scope was ultimately passed to the cecum. The ileocecal valve and the appendiceal orifice were normal. Scope was withdrawn from that point. A few diverticula were seen even in the region of the cecum. Withdrawal of scope showed no sign of clot or bleeding or other abnormality until approximately 45 cm from the anal verge where 2 small polyps were noted. These were excised with cold morcellation technique in one and hot snare polypectomy technique in the other. Further withdrawal of scope only confirmed diverticular changes though. Retroflexed view of the rectum showed minimal hemorrhoidal change. There was no sign of blood there either. The scope was removed. The patient was taken to recovery room in good condition. CONCLUDING DIAGNOSIS: Uncertain etiology of melena, most likely related to diverticular changes with complete cessation of bleeding at this time. Less likely is a possibility of small bowel lesion. PLAN: He will return to the care of Drs. Acuna and Jairo and consideration will be made for a regular diet. Surveillance colonoscopy would be appropriate within 1 to 3 years depending on pathology results of the polyps excised. In due course, a high-fiber diet would be appropriate. MD BERKLEY Galicia/PIAL /[id number] cc: [facility] Fatou Acuna MD Electronically Signed By: BRENNAN LUIS MD 09/20/17 0850 PATIENT NAME: RODRICK JAVIER OPERATIVE REPORT DATE OF : 48 PHYSICIAN: BRENNAN LUIS MD REPORT #: [id number] REPORT IS CONFIDENTIAL AND NOT TO BE RELEASED WITHOUT AUTHORIZATION
--- NOTE | 2017-09-20 09:50 | NUR ---
PT EDUCATION ON DISEASE PROCESS, MEDICATION EDUCATION, PATIENTS SPOUSE AT BEDSIDE SAID "I UNDERSTAND ALL SIDE EFFECTS CLEARLY" I HAVE NO FURTHER QUESTIONS, CHARLIE FROM PHARMACY DID MEDICATION EDUCATIONS, DISCUSSED FOLLOW UP APPOINTMENTS AND TO NOT TAKE ANY BLOOD THINNER CLASS MEDCATIONS UNTIL FOLLOW-UP BUT NO SOONER THAN TWO WEEKS. I.V. REMOVED TIP INTACT. V/S STABLE. 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 EDUCATION GIVEN ABOUT FALL PREVENTION SOCKS, PT STATED "WELL I UNDERSTAND THAT, BUT THAT IS NOT HOW IT WAS EXPLAINED TO ME BEFORE." RN EXPLAINED PERHAPS NEXT TIME WE COULD SHAVE HIS CHEST TO PREVENT STICKERS FROM FALLING OFF. PT SAID "I TOLD THEM THE ARE NOT GOING TO SHAVE ME ANYMORE". PATIENT AND SPOUSE ABLE TO VERBALIZE ALL EDUCATIONS PROVIDED.
== END 2017-09-20 10:00 | disposition home or self-care (01) | DRG 378 ==
LOC: ED 17:10 → CCU 19:21 → MS 09-19 10:39
PROVIDERS: ADMIT Internal Medicine
PROC: 30233N1 Transfusion of Nonautologous Red Blood Cells into Peripheral Vein, Percutaneous Approach (ICD-10-PCS; principal; 2017-09-17)
PROC: 0DB58ZX Excision of Esophagus, Via Natural or Artificial Opening Endoscopic, Diagnostic (ICD-10-PCS; 2017-09-18)
PROC: 0DBN8ZX Excision of Sigmoid Colon, Via Natural or Artificial Opening Endoscopic, Diagnostic (ICD-10-PCS; 2017-09-19)
DX: K27.4 Chronic or unspecified peptic ulcer, site unspecified, with hemorrhage (principal); D62 Acute posthemorrhagic anemia; N17.9 Acute kidney failure, unspecified; I50.22 Chronic systolic (congestive) heart failure; E87.6 Hypokalemia; I48.91 Unspecified atrial fibrillation; I25.10 Atherosclerotic heart disease of native coronary artery without angina pectoris; Z95.1 Presence of aortocoronary bypass graft; K21.9 Gastro-esophageal reflux disease without esophagitis; K57.31 Diverticulosis of large intestine without perforation or abscess with bleeding; K63.5 Polyp of colon; F17.210 Nicotine dependence, cigarettes, uncomplicated
CPT/HCPCS: 36415; 36430; 80048; 80053; 83735; 85025; 85610; 85730; 86850; 86900; 86901; 86920; 88305; 93005; 93010; 94667; 94668; 99156; 99157; C9132; J2250; J2370; J2704; J3010; J3475; J3480; J7040; J7060; J7120; P9016

== ENCOUNTER 2022-01-15 05:55 | Day surgery (SDC) | payer OTHER ==
[~2022-01-15] VITALS: Ht 177.8 cm; Wt 70.5 kg
[~2022-01-15 05:55] MED LIST changes: +B-12500 MC1 SL; +BASE B,POLYETHYL1 GM; +COREG25 MG PO; +CRESTOR40 MG NG; +FLOMAX0.4 MG PO; +FOSAMAX70 MG PO; +IRON325 M1 PO; +ZESTRIL10 MG PO
[2022-01-15] MEDS ORDERED: LASIX20 MG PO (06:09)
--- NOTE | 2022-01-15 08:28 | NUR ---
01/15/22 0828 Selena Johnson 0820-PT TO PACU IN LL POSITION. EYES CLOSED. RESPONDS TO VERBAL STIMULI. DENIES PAIN AND FALLS BACK TO SLEEP. BREATHING EASY AND UNLABORED. SPO2 >95% ON 6 L O2 VIA NC. O2 TITRATED DOWN TO 2 LPM. PT PASSING GAS. 0825- PT DROWSY BUT REMAINS AWAKE. PT DENIES PAIN AND NAUSEA. PT REQUESTING WATER. BREATHING EASY AND UNLABORED. SPO2 >95%. O2 TITRATED DOWN TO ROOM AIR.
--- NOTE | 2022-01-15 09:38 | NUR ---
PT ALERT, ORIENTED AND MENTIONED HE HAS HAD PREVIOUS SCOPES. PT SEEMED TO WANT TO REST, GAVE BLESSING. WILL FOLLOW
--- NOTE | 2022-01-19 07:20 | OR ---
[facility] [address] [place], [place] [address] Signed DATE OF OPERATION: 01/15/2022 SURGEON: Norm Barboza MD PREOPERATIVE DIAGNOSES: 1. Chronic anemia with hemoglobin 11.1, mean cell volume of 102. 2. Gastroesophageal reflux disease with esophagitis. 3. History of short-segment Guevara's. 4. History of colonic polyps. 5. Mother with colon cancer at age 87. 6. Prostate cancer, status post radiation therapy. POSTOPERATIVE DIAGNOSES: 1. Mild diffuse gastritis. 2. Tiny hiatal hernia. 3. Short-segment Guevara's. 4. Moderate pandiverticulosis. 5. A 4 mm polyps at 8 cm. 6. A 5 mm polyps x2 at 70 cm. 7. Radiation based rectal ulcer at 4 cm, status post biopsies. PROCEDURES: 1. Esophagogastroduodenoscopy with CLOtest and biopsies of the antrum. 2. Colonoscopy with hot biopsy. ESTIMATED BLOOD LOSS: None. INDICATIONS: Rodrick is a 71-year-old gentleman asked to see me for a followup upper and lower endoscopy. He is known to have iron-deficiency anemia. He does take iron tablets. He had a GI bleed in 2018. Dr. Tobias did the upper and lower endoscopy. 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 He had a tubular adenomatous polyp removed at 45 cm. His mother had developed colon cancer at age 87, she of old age at age 98. He really has no lower or upper GI complaints. He just finished radiation therapy with Dr. Vasquez for his prostate cancer in March 2021. He also has a history atrial fibrillation and open heart surgery and repair of his valve with bypass graft. He said he is doing very well since that time. He still likes to have several drinks a day. 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 In the office, I gave Rodrick pamphlets on both upper and lower endoscopy. We had reviewed Electronically Signed By: NORM BARBOZA MD 01/19/22 0720 PATIENT NAME: RODRICK JAVIER OPERATIVE REPORT DATE OF : 48 REPORT #: [id number] PHYSICIAN: NORM BARBOZA MD PCP: RAFAEL HAN MD REPORT IS CONFIDENTIAL AND NOT TO BE RELEASED WITHOUT AUTHORIZATION [facility] [address] [place], [place] [address] Signed the nature of the two tests. There is risk including, but not limited to gas bloating, crampy abdominal pain, bleeding, perforation requiring surgery, and missed diagnosis. We also reviewed the need for monitored anesthesia care given his various medical issues. He had expressed understanding and wished to proceed. PROCEDURE NOTE: Rodrick was taken into our endoscopy suite and placed in the supine semi-recumbent position. Bite block was utilized for the case. He was given moderate anesthesia care with propofol per our nurse machine rebuilder. The adult gastroscope was introduced and advanced under direct visualization into the third portion of the duodenum without difficulty. The duodenum and pyloric channel were not particularly concerning. The stomach showed very mild diffuse erythematous changes. We went and took a biopsy from antrum for CLOtest as well as pathologic review. Upon retroflexion of scope, he probably has just a very tiny hiatal hernia. The scope has been withdrawn up through the area of the GE junction, which was compliant without stricture. There was no gastric or esophageal varices. He has minimal disruption to the Z-line, which could be interpreted as very short-segment Guevara esophagus. It is quite healthy and without any inflammatory changes whatsoever. There was no distal esophagitis. The middle and upper esophagus were completely unremarkable. After this, the gas had been suctioned out and the gastroscope removed. Rodrick tolerated the upper endoscopy quite well. Rodrick was then rotated into the left lateral decubitus position. He was maintained on propofol per our nurse machine rebuilder. A digital rectal exam was performed and I could feel an ulcerated lesion anteriorly in the area of the prostate. He had good sphincter tone. Not much of anything in the way of external hemorrhoids, prostate was essentially gone. The adult colonoscope had been introduced and advanced all around into the cecum under direct visualization of camera without difficulty. We could easily see the appendiceal orifice and the ileocecal valve. The scope was then slowly withdrawn. We took pictures throughout for photodocumentation. He has moderate-sized pandiverticulosis. They relatively few in number, and scattered about. The above-mentioned polyps were easily removed with the help of hot biopsy forceps. We could easily see this ulcerated lesion just above the anal canal, it appeared all be from his radiation. We went ahead and took a biopsy on either side, otherwise it looks healthy and it is healing nicely. After this, the scope had been retroflexed and we really did not see any obvious concerns right around the anus itself. The gas was then suctioned out. The colonoscope removed. Rodrick tolerated the procedure quite well. RECOMMENDATIONS: I will see Rodrick back in my office in 7 to 14 days to review his results. Electronically Signed By: NORM BARBOZA MD 01/19/22 0720 PATIENT NAME: RODRICK JAVIER OPERATIVE REPORT DATE OF : 48 REPORT #: [id number] PHYSICIAN: NORM BARBOZA MD PCP: RAFAEL HAN MD REPORT IS CONFIDENTIAL AND NOT TO BE RELEASED WITHOUT AUTHORIZATION [address] [place] [address] Signed Norm Barboza MD ALB/MODL /[id number] cc: MD Andreas Altamirano MD, PH.D. Patient Chart Rafael Han MD Copies: NORM BARBOZA MD, JUNO KUZMA, MICAIAH MATTHEW MD ~ Electronically Signed By: NORM BARBOZA MD 01/19/22 0720 PATIENT NAME: RODRICK JAVIER OPERATIVE REPORT DATE OF : 48 REPORT #: [id number] PHYSICIAN: NORM BARBOZA MD PCP: RAFAEL HAN MD REPORT IS CONFIDENTIAL AND NOT TO BE RELEASED WITHOUT AUTHORIZATION
--- NOTE | 2022-01-19 13:13 | PATH ---
[facility] [address] [place], [place] [address] Signed SPECIMEN(S): A ANTRUM/PYLORUS BIOPSY SPECIMEN(S): B COLON POLYP AT 8 CM SPECIMEN(S): C COLON POLYPS AT 70 CM X2 SPECIMEN(S): D COLON POLYP AT 12 CM SPECIMEN(S): E RECTAL ULCER BIOPSY SPECIMEN SOURCE: A. ANTRUM/PYLORUS BIOPSY B. COLON POLYP AT 8 CM C. COLON POLYPS AT 70 CM X2 D. COLON POLYP AT 12 CM E. RECTAL ULCER BIOPSY CLINICAL HISTORY: Guevara's esophagus, personal history of colon polyps. Post-op: Gastritis, diverticulosis, rectal ulcer, colon polyps. FINAL PATHOLOGIC DIAGNOSIS: A. Stomach, antrum/pylorus, biopsy: - Antral mucosa with chronic, inactive gastritis. - Negative for Helicobacter organisms on HE stain. - Negative for dysplasia or malignancy. B. Colon, polyp at 8 cm, polypectomy: - Fragments of hyperplastic polyp. - Negative for dysplasia or malignancy. C. Colon, polyps x2 at 70 cm, polypectomies: - Tubular adenomas. - Negative for high-grade dysplasia or malignancy. D. Colon, polyp at 12 cm, polypectomy: - Cauterized tubular adenoma. - Negative for high-grade dysplasia or malignancy. E. Rectum, ulcer, biopsy: - Fragments of colorectal mucosa with mild hyperplastic mucosal changes. - Negative for active, chronic, or microscopic colitis. - Negative for dysplasia or malignancy. COMMENT: Regarding specimen A: An H. pylori immunohistochemical stain (with appropriately staining controls) is pending and will be reported in an addendum. NAL:cml:C2NR PATIENT NAME: RODRICK JAVIER PATHOLOGY DATE OF : 48 REPORT #: [id number] PHYSICIAN: ANDRES BUNCH PCP: RAFAEL HAN MD REPORT IS CONFIDENTIAL AND NOT TO BE RELEASED WITHOUT AUTHORIZATION [facility] [address] [place], [place] [address] Signed MICROSCOPIC EXAMINATION: Histologic sections of all submitted blocks are examined by light microscopy. These findings, together with the gross examination, support the pathologic diagnosis. GROSS DESCRIPTION: Five specimens are received in five containers, labeled "LC." A. The specimen, labeled "LC, antrum biopsy," is received in formalin and consists of one winn soft tissue fragment that measures 0.2 cm in greatest dimension. The specimen is entirely submitted in cassette (A1). B. The specimen, labeled "LC, colon polyp at 8 cm," is received in formalin and consists of two winn soft tissue fragments that measure 0.2 cm in greatest dimension. The specimen is entirely submitted in cassette (B1). C. The specimen, labeled "LC, colon polyp at 70 cm," is received in formalin and consists of two winn soft tissue fragments that measure 0.2 cm in greatest dimension. The specimen is entirely submitted in cassette (C1). D. The specimen, labeled "LC, colon polyp at 12 cm," is received in formalin and consists of two winn soft tissue fragments that measure 0.1 cm in greatest dimension. The specimen is entirely submitted in cassette (D1). E. The specimen, labeled "LC, rectal ulcer biopsy," is received in formalin and consists of two winn soft tissue fragments that measure 0.2 cm in greatest dimension. The specimen is entirely submitted in cassette (E1). JS (under the direct supervision of a pathologist) The Gross Description was prepared using a voice recognition system. The report was reviewed for accuracy; however, sound-alike word errors, addition and/or deletions may occur. If there is any question about this report, please contact Client Services. PERFORMING LABORATORY: The technical component was performed by [facility], [address] [place] [id number] (CLIA# [id number]). Professional interpretation was performed by [facility], [address] [address] (CLIA# [id number]). PATIENT NAME: RODRICK JAVIER PATHOLOGY DATE OF : 48 REPORT #: [id number] PHYSICIAN: ANDRES BUNCH PCP: RAFAEL HAN MD REPORT IS CONFIDENTIAL AND NOT TO BE RELEASED WITHOUT AUTHORIZATION [facility] [address] [place], [place] [address] Signed Diagnostician: Stephanie Fish MD Pathologist Electronically Signed 01/19/2022 Copies: ~ PATIENT NAME: RODRICK JAVIER PATHOLOGY DATE OF : 48 REPORT #: [id number] PHYSICIAN: ANDRES BUNCH PCP: RAFAEL HAN MD REPORT IS CONFIDENTIAL AND NOT TO BE RELEASED WITHOUT AUTHORIZATION
== END 2022-01-15 08:50 | disposition home or self-care (01) ==
LOC: DS 05:55 → OPS 05:55 → DS 07:30 → OPS 07:30
PROVIDERS: ATTEND Colon & Rectal Surgery
PROC: 0DB68ZX Excision of Stomach, Via Natural or Artificial Opening Endoscopic, Diagnostic (ICD-10-PCS; principal; 2022-01-15 07:30)
PROC: 0DBE8ZX Excision of Large Intestine, Via Natural or Artificial Opening Endoscopic, Diagnostic (ICD-10-PCS; 2022-01-15 07:30)
DX: K29.50 Unspecified chronic gastritis without bleeding (principal); K21.00 Gastro-esophageal reflux disease with esophagitis, without bleeding; D12.6 Benign neoplasm of colon, unspecified; Z80.0 Family history of malignant neoplasm of digestive organs; Z86.010 Personal history of colon polyps; D50.9 Iron deficiency anemia, unspecified; K22.70 Barrett's esophagus without dysplasia; E78.00 Pure hypercholesterolemia, unspecified; I12.9 Hypertensive chronic kidney disease with stage 1 through stage 4 chronic kidney disease, or unspecified chronic kidney disease; N18.31 Chronic kidney disease, stage 3a; J44.9 Chronic obstructive pulmonary disease, unspecified; E78.5 Hyperlipidemia, unspecified; I25.10 Atherosclerotic heart disease of native coronary artery without angina pectoris; Z88.0 Allergy status to penicillin; K44.9 Diaphragmatic hernia without obstruction or gangrene; K62.6 Ulcer of anus and rectum
CPT/HCPCS: 36415; 87077; J0690; J2001; J2370; J2704; J7121

== ENCOUNTER 2024-09-05 06:22 | Emergency (ER) | payer OTHER, MEDICARE ==
[~2024-09-05] VITALS: Ht 180.3 cm; Wt 66.7 kg
[~2024-09-05 06:22] MED LIST changes: +ASPIRIN325 MG PO; +AZITHROMYCIN250 MG PO; +COREG12.5 MG PO; -COREG25 MG PO; +IPRAT-ALBUT 0.5-3 ML INH; +KLOR-CON 1010 MEQ PO; +LISINOPRIL10 MG PO; +METHYLPREDNISOLO4 M1 PO; +VENTOLIN HFA18 GM INH; +VITAMIN B-12500 MCG PO; +VOLTAREN ARTHRI20 GM TOP
--- OUTSIDE RECORDS SUMMARY | 2024-09-05 06:25 | XMS ---
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 ENhi VISIT COUNT (12 MO.) 3 MARISELA Henderson TOTAL 3 NOTE: Visits indicate total known visits. ED/UCC VISIT TRACKING (12 MO.) 09/05/2024 06:22 MARISELA Lipscomb [place] TYPE: Emergency COMPLAINT: - BACK PAIN 10/24/2023 11:45 MARISELA [facility]comb [place] TYPE: Emergency COMPLAINT: - DIFFICULTY BREATHING 10/23/2023 01:36 MARISELA [facility]comb [place] TYPE: Emergency COMPLAINT: - SOB DIAGNOSES: - Allergy status to penicillin - Chronic cough - Chronic obstructive pulmonary disease with (acute) exacerbation - Cough, unspecified - Nicotine dependence, cigarettes, uncomplicated - Nicotine dependence, unspecified, uncomplicated - Other database report writer (current) drug therapy - Respiratory syncytial virus as the cause of diseases classified elsewhere - Unspecified atrial fibrillation - Unspecified osteoarthritis, unspecified site INPATIENT VISIT TRACKING (12 MO.) 10/24/2023 11:46 MARISELA Lipscomb OR TYPE: Observation COMPLAINT: - COPD DIAGNOSES: - Allergy status to penicillin - Atherosclerotic heart disease of [place] coronary artery without angina pectoris - Chronic kidney disease, unspecified - Chronic obstructive pulmonary disease with (acute) exacerbation - Nicotine dependence, unspecified, uncomplicated [email or web address]
[2024-09-05 06:36] LABS: BASOPHILS 0.4 % (0-2); EOSINOPHILS 0.7 % (0-6); HEMATOCRIT 35.2 % (35.0-50.0); LYMPHOCYTES 4.5 % (24-44); MCH 35.4 (27-36); MCHC 34.1 g/dl (30-36); MCV 103.7 fl (81-99); MONOCYTES 5.9 % (0-12); NEUTROPHILS 88.5 % (39-80); PLATELET COUNT 212 K/uL (140-440); RBC 3.39 M/ul (4.3-5.7); RDW 15.5 (10.5-15.0)
[2024-09-05] MEDS ORDERED: MEDROL4 MG PO (06:45)
[2024-09-05] MEDS ORDERED: SPIRIVA18 MCG INH (06:46)
[2024-09-05 06:56] LABS: ALBUMIN 2.6 g/dL (3.4-5.0); ALBUMIN/GLOBULIN RATIO 0.67 (1.1-2.4); ALCOHOL, MEDICAL <3 ng/dL (<3); ALKALINE PHOSPHATASE 82 U/L (46-116); ALT (SGPT) 199 U/L (14-59); ANION GAP 19.5 (7-21); AST (SGOT) 438 U/L (15-37); BILIRUBIN, TOTAL 0.8 ng/dL (0.2-1.0); BUN/CREATININE RATIO 5.35 (6.0-28.6); CALCIUM 8.2 mg/dL (8.5-10.1); CARBON DIOXIDE 20 mmol/L (21-32); CHLORIDE 94 mmol/L (98-107); CREATININE, SERUM 7.84 mg/dL (0.70-1.30); GLOMERULAR FILTRATION RATE,EST 7 mL/min (>60); POTASSIUM 4.5 mmol/L (3.5-5.1); PROTEIN, TOTAL 6.5 g/dL (6.4-8.2); UREA NITROGEN 42 mg/dL (7-18)
[2024-09-05 07:17] LABS: INFLUENZA B NAA NEGATIVE (NEGATIVE); RESPIRATORY SYNCYTIAL VIR NAA NEGATIVE (NEGATIVE)
[2024-09-05] MEDS ORDERED: CEFTRIAXONE/SODIUM CHLORIDE 2 GM/100 ML PIGGYBACK IV ONE (07:45)
[2024-09-05 08:00] LABS: ABO O; ANTIBODY SCREEN NEGATIVE; RH POSITIVE
[2024-09-05 08:23] LABS: LACTIC ACID, BLOOD 1.3 mmol/L (0.4-2.0)
[2024-09-05 08:51] VITALS: BP 164/84
--- NOTE | 2024-09-07 10:15 | EKG ---
[facility] [address] [facility] [place], [place] [address] Signed Atrial fibrillation Abnormal ECG When compared with ECG of 24-OCT-2023 12:15, No significant change was found Confirmed by Narciso Keene DO ([id number]) on 09/07/2024 10:15:26 AM Electronically Signed By: NARCISO KEENE DO 09/07/24 1015 PATIENT NAME: RODRICK JAVIER NICO Electrocardiogram DATE OF : 48 PHYSICIAN: NARCISO KEENE DO REPORT #: [id number] REPORT IS CONFIDENTIAL AND NOT TO BE RELEASED WITHOUT AUTHORIZATION
== END 2024-09-05 08:53 | disposition short-term general hospital (02) ==
LOC: ED 06:22
PROVIDERS: Internal Medicine
DX: N17.9 Acute kidney failure, unspecified (principal); R79.89 Other specified abnormal findings of blood chemistry; J43.9 Emphysema, unspecified; I25.10 Atherosclerotic heart disease of native coronary artery without angina pectoris; I48.91 Unspecified atrial fibrillation; F17.200 Nicotine dependence, unspecified, uncomplicated; Z88.0 Allergy status to penicillin; Z79.82 Long term (current) use of aspirin; Z79.899 Other long term (current) drug therapy
CPT/HCPCS: 36415; 51798; 71275; 74174; 74175; 80053; 80307; 83605; 83880; 84484; 85025; 85379; 86850; 86900; 86901; 87502; 93005; 93010; 99285-25; G0480; J0696; U0002

== ENCOUNTER 2025-07-26 12:26 | Day surgery (SDC) | payer MEDICARE, OTHER ==
[~2025-07-26] VITALS: Ht 180.3 cm; Wt 70.0 kg
[~2025-07-26 12:26] MED LIST changes: -CRESTOR40 MG NG; +IBLOOD GLUCOSE TEST STRIP 1 EA TEST VI PRN; +JARDIANCE10 MG PO; +LACTATED RINGER'S 1,000 ML IV SCH; +LIDOCAINE HCL 1% 5 ML SDV INJ ONE; +LIDOCAINE HCL 2% 5 ML SDV ONE; +MEDROL4 MG PO; +PROCARDIA XL30 MG PO; +SPIRIVA18 MCG INH; +TORSEMIDE10 MG PO; +VITAMIN B-1250 MCG PO; -VITAMIN B-12500 MCG PO
[2025-07-26 12:45] VITALS: BP 147/60
--- NOTE | 2025-07-26 13:00 | NUR ---
WENT HOME PT THINKS HE KNOWS ANSWERS TO QUESTIONS. CALL LIGHT GIVEN.
--- NOTE | 2025-07-26 14:04 | NUR ---
1330 WARM BLANKET ON. DENIES ANY NEEDS.
--- NOTE | 2025-07-26 14:46 | NUR ---
07/26/25 Evy6 Tish Figueredo 1430- PT ARRIVES TO PACU, LEFT LATERAL POSITION. NON REACTIVE TO STIMULUS. BREATHING EVEN AND NON LABORED ON 3L O2 PER NC. LR INFUSING TO RFA IV. UNABLE TO OBTAIN BP INTIALLY, FIRST BP AT 1435. OTHER VITAL SIGNS WNL AND BASELINE FOR PT. ABD SOFT, NON DISTENDED. ALL MONITORS IN PLACE. 1435- BP 88/53, LR RATE INCREASED. BP ROLLED TO BACK. BREATHING EVEN AND NON LABORED. 1446- PT STARTING TO STIR, WAKES TO LOUD VERBAL STIMULI.
[2025-07-26 15:04] VITALS: BP 135/55
--- NOTE | 2025-07-27 09:58 | OR ---
[facility] [address] [place], [place] [address] Signed DATE OF OPERATION: 07/26/2025 SURGEON: Jenny Lockett DO PREOPERATIVE DIAGNOSIS: Colon cancer screening. POSTOPERATIVE DIAGNOSIS: Colon cancer screening with profound diverticulosis. PROCEDURE PERFORMED: Colonoscopy to 90 cm. ANESTHESIA: IV sedation. ESTIMATED BLOOD LOSS: None. DRAINS: None. COMPLICATIONS: None. DESCRIPTION OF PROCEDURE: The patient was brought to the GI lab, placed in supine position. After induction of IV sedation the patient was then placed in the left lateral position, padded to the satisfaction of Anesthesia by utilizing the [employer] video colonoscope was then introduced into the rectum. Under direct visualization and insufflation the scope was advanced to the rectosigmoid, sigmoid colon, descending colon to approximately 90 cm. There were so many large diverticulum from in and around this area of the descending colon to the splenic flexure. Multiple attempts were made to pass the splenic flexure, but due to the tortuosity and large diverticula was thought to be unsafe to proceed. The scope was then brought back into the descending colon, profound diverticulosis was present but no other intrinsic or extrinsic masses noted. Scope was brought back into the sigmoid colon. No intrinsic or extrinsic masses, lesions, or ulceration noted except for profound diverticulosis. In the rectosigmoid there was diverticulosis. No evidence of diverticulitis as well. No other intrinsic or extrinsic masses noted. The scope was Electronically Signed By: JENNY LOCKETT DO 07/27/25 0958 PATIENT NAME: RODRICK JAVIER OPERATIVE REPORT DATE OF : 48 REPORT #: [id number] PHYSICIAN: JENNY LOCKETT DO PCP: COLIN NICK MD REPORT IS CONFIDENTIAL AND NOT TO BE RELEASED WITHOUT AUTHORIZATION [address] [place], [place] [address] Signed withdrawn. The patient tolerated the procedure well and taken to recovery room in satisfactory condition. DO NAT Hou/DEENA /[id number] Copies: ~ Electronically Signed By: JENNY LOCKETT DO 07/27/25 0958 PATIENT NAME: RODRICK JAVIER OPERATIVE REPORT DATE OF : 48 REPORT #: [id number] PHYSICIAN: JENNY LOCKETT DO PCP: COLIN NICK MD REPORT IS CONFIDENTIAL AND NOT TO BE RELEASED WITHOUT AUTHORIZATION
--- NOTE | 2025-07-27 22:13 | EKG ---
[facility] [address] [facility] [place] [address] Signed Atrial fibrillation Abnormal QRS-T angle, consider primary T wave abnormality Abnormal ECG When compared with ECG of 05-SEP-2024 06:34, No significant change was found Confirmed by Myron Gonzalez MD () on 07/27/2025 10:13:10 PM Electronically Signed By: MYRON GONZALEZ MD 07/27/25 2213 PATIENT NAME: RODRICK JAVIER NICO Electrocardiogram DATE OF : 48 PHYSICIAN: MYRON GONZALEZ MD REPORT #: [id number] REPORT IS CONFIDENTIAL AND NOT TO BE RELEASED WITHOUT AUTHORIZATION
== END 2025-07-26 15:15 ==
LOC: DS 12:26
PROVIDERS: ATTEND Surgery
PROC: 0DJD8ZZ Inspection of Lower Intestinal Tract, Via Natural or Artificial Opening Endoscopic (ICD-10-PCS; principal; 2025-07-26 13:35)
DX: K57.30 Diverticulosis of large intestine without perforation or abscess without bleeding (principal); K63.89 Other specified diseases of intestine; K59.00 Constipation, unspecified; Z53.8 Procedure and treatment not carried out for other reasons; Z86.0100 Personal history of colon polyps, unspecified; E78.00 Pure hypercholesterolemia, unspecified; I12.9 Hypertensive chronic kidney disease with stage 1 through stage 4 chronic kidney disease, or unspecified chronic kidney disease; N18.30 Chronic kidney disease, stage 3 unspecified; I25.10 Atherosclerotic heart disease of native coronary artery without angina pectoris; Z88.0 Allergy status to penicillin
CPT/HCPCS: 00812; 93005; 93010; J2003; J2704; J7121